=== PATIENT | male | born 1940 | race Caucasian/White ===

== ENCOUNTER → 2018-06-26 10:55 | Outpatient (CLI) | payer MEDICARE, SELFPAY ==
[2018-06-26 12:25] LABS: Add Manual Diff / Slide Review NO; Basophils Percent Auto 0.6 % (0-2); Eosinophils Percent Auto 3.1 % (2-4); Hematocrit 41.9 % (41-53); Hemoglobin 14.5 g/dL (13.5-17.5); Lymphocytes Percent Auto 20.9 % (25-40); Mean Corpuscular HGB Conc 34.6 % (30-36); Mean Corpuscular Hemoglobin 30.3 PG (26-34); Mean Corpuscular Volume 87.6 fL (80-100); Monocytes Percent Auto 11.2 % (3-14); Neutrophils Absolute Auto 3900 /uL (3000-5900); Neutrophils Percent Auto 64.2 % (50-75); Platelet Count 217 X10^3/uL (150-400); Red Blood Cell Count 4.79 X10^6/uL (4.5-5.9); Red Cell Distribution Width 12.9 % (11.6-14.8)
[2018-06-26 12:43] LABS: HEMOLYSIS < 15 (0-50); Iron 134 ug/dL (49-181)
[2018-06-26 12:46] LABS: Alanine Aminotransferase 37 IU/L (21-72); Albumin 4.6 g/dL (3.5-5.0); Albumin Globulin Ratio 1.5 (1.0-2.8); Alkaline Phosphatase 63 U/L (38-126); Aspartate Aminotransferase 34 IU/L (17-59); Bilirubin Total 0.5 mg/dL (0.2-1.3); Blood Urea Nitrogen 33 mg/dL (9-20); Calcium 9.3 mg/dL (8.4-10.2); Carbon Dioxide 25 mmol/L (22-32); Chloride 103 mmol/L (98-107); Estimated Glomerular Filt Rate 45.4 mL/min (>60); Glucose 64 mg/dL (80-110); HEMOLYSIS 18 (0-50); Potassium 3.8 mmol/L (3.4-5.1); Sodium 143 mmol/L (137-145); Total Protein 7.6 g/dL (6.3-8.2)
[2018-06-26 12:54] LABS: Percent Iron Saturation 39 % (20-50); Total Iron Binding Capacity 347 ug/dL (261-462); Transferrin 289 mg/dL (206-381)
[2018-06-26 13:03] LABS: Free T4, Direct Thyroxine 1.22 ng/dL (0.78-2.19)
[2018-06-26 13:16] LABS: Thyroid Stimulating Hormone 2.08 uIU/mL (0.47-4.68)
[2018-06-26 17:09] LABS: Hepatitis B Surface Antigen NEGATIVE s/c (NEGATIVE)
[2018-06-26 17:18] LABS: Hep C Virus Ab w/Reflex Quant NEGATIVE s/c (NEGATIVE)
[2018-06-30 07:58] LABS: ANA Screen NEGATIVE (Negative); DNA Antibody Crithidia IFA NEGATIVE (Negative); Rheumatoid Factor <14 IU/mL; Sjogren Antiboday SS-A <1.0 NEG AI (<1.0 NEGATIVE); Sjogren Antiboday SS-B <1.0 NEG AI (<1.0 NEGATIVE); Sm Antibody <1.0 NEG AI (<1.0 NEGATIVE); Sm/RNP Antibody <1.0 NEG AI (<1.0 NEGATIVE)
== END ==
PROVIDERS: Family Provider Family Medicine; PCP Family Medicine; Visit Provider Physician Assistant
DX: L29.8 Other pruritus (principal)
CPT/HCPCS: 36415; 80053; 82728; 82785; 83540; 83550; 84439; 84443; 85025; 86003; 86038; 86430; 86803; 87340

== ENCOUNTER → 2018-06-27 10:21 | Outpatient (CLI) | payer MEDICARE, SELFPAY | PROVIDERS: Family Provider Family Medicine; PCP Family Medicine; Visit Provider Physician Assistant | DX: L29.8 Other pruritus (principal) | CPT/HCPCS: 87177 ==

== ENCOUNTER → 2019-09-04 06:36 | Outpatient (CLI) | payer MEDICARE, SELFPAY ==
--- NOTE | 2019-09-04 06:40 | DI.RAD.S_ITS ---
PROCEDURE: XR SHOULDER LT MIN 2V INDICATIONS: Pain, history of left shoulder surgery TECHNIQUE: 3 views of the shoulder were acquired. COMPARISON: None. FINDINGS: Bones: No fractures or dislocations. No suspicious bony lesions. Visualized ribs appear intact. Soft tissues: No suspicious soft tissue calcifications. IMPRESSION: Mild arthritic change at the a.c. joint. No recent trauma suspected. Dictated by: Jerel Ramirez M.D. on 09/04/2019 at 8:26 Approved by: Jerel Ramirez M.D. on 09/04/2019 at 8:27
== END ==
PROVIDERS: Family Provider Family Medicine; PCP Family Medicine; Referring Provider Physical Medicine & Rehabilitation; Visit Provider Physical Medicine & Rehabilitation
DX: M75.42 Impingement syndrome of left shoulder (principal); M19.012 Primary osteoarthritis, left shoulder; M25.512 Pain in left shoulder
CPT/HCPCS: 73030

== ENCOUNTER → 2020-06-02 13:06 | Outpatient (CLI) | payer MEDICARE, SELFPAY | PROVIDERS: Family Provider Family Medicine; PCP Family Medicine; Referring Provider Orthopaedic Surgery; Visit Provider Family Medicine | DX: S61.212A Laceration without foreign body of right middle finger without damage to nail, initial encounter (principal); L03.113 Cellulitis of right upper limb; L08.9 Local infection of the skin and subcutaneous tissue, unspecified | CPT/HCPCS: 11042; 36415; 73140; 80053; 85025; 85651; 86140; 87070; 87075; 87077; 87186; 87205; 99203; 99213 ==

== ENCOUNTER → 2020-06-02 14:44 | Outpatient (CLI) | payer MEDICARE, SELFPAY ==
--- NOTE | 2020-06-02 | DI.RAD.S_ITS ---
PROCEDURE: XR FINGER RT MIN 2V INDICATIONS: Unspecified open wound of right middle finger without damage TECHNIQUE: AP hand, 2 views of the 3rd finger(s) acquired. COMPARISON: None. FINDINGS: Bones: No fractures or dislocations. No suspicious bony lesions. 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 Soft tissues: Soft tissue swelling about the 3rd digit and distal laceration. No suspicious soft tissue calcifications. Question of punctate metallic foreign body at the 2nd digit radial aspect adjacent to the DIP joint. IMPRESSION: No acute osseous abnormality. 3rd digit laceration with soft tissue swelling. Moderate interphalangeal joint degenerative change. Question of metallic foreign body at the 2nd digit radial aspect adjacent to the DIP joint. Dictated by: Perico Hunt M.D. on 06/02/2020 at 16:24 Approved by: Perico Hunt M.D. on 06/02/2020 at 16:27
[2020-06-02 16:18] LABS: Add Manual Diff / Slide Review NO; Basophils Absolute Auto 0 /uL (0-100); Basophils Percent Auto 0.5 % (0-2); Eosinophils Absolute Auto 100 /uL (0-450); Eosinophils Percent Auto 1.7 % (2-4); Hematocrit 38.8 % (41-53); Hemoglobin 12.9 g/dL (13.5-17.5); Lymphocytes Absolute Auto 1300 /uL (1100-4500); Mean Corpuscular HGB Conc 33.4 % (30-36); Mean Corpuscular Hemoglobin 29.7 PG (26-34); Mean Corpuscular Volume 89.1 fL (80-100); Monocytes Absolute Auto 700 /uL (0-900); Neutrophils Absolute Auto 3900 /uL (1500-7000); Neutrophils Percent Auto 65.8 % (50-75); Platelet Count 255 X10^3/uL (150-400); Red Blood Cell Count 4.35 X10^6/uL (4.5-5.9); Red Cell Distribution Width 13.4 % (11.6-14.8)
[2020-06-02 16:46] LABS: Erythrocyte Sedimentation Rate 29 MM/HR (0-15)
[2020-06-02 17:02] LABS: Alanine Aminotransferase 17 IU/L (<50); Albumin 4.4 g/dL (3.5-5.0); Albumin Globulin Ratio 1.4 (1.0-2.8); Alkaline Phosphatase 69 U/L (38-126); Aspartate Aminotransferase 25 IU/L (17-59); BUN Creatinine Ratio 24.6 (6-22); Bilirubin Total 0.4 mg/dL (0.2-1.3); Blood Urea Nitrogen 30 mg/dL (9-20); Calcium 9.2 mg/dL (8.4-10.2); Carbon Dioxide 23 mmol/L (22-32); Chloride 108 mmol/L (98-107); Estimated Glomerular Filt Rate 57.3 mL/min (>60); Globulin 3.1 g/dL (1.7-4.1); Glucose 75 mg/dL (80-110); HEMOLYSIS < 15 (0-50); Potassium 4.4 mmol/L (3.4-5.1); Sodium 139 mmol/L (137-145); Total Protein 7.5 g/dL (6.3-8.2)
[2020-06-02 17:04] LABS: C-Reactive Protein Quant < 0.5 mg/dL (<1.0)
== END ==
PROVIDERS: Family Provider Family Medicine; PCP Family Medicine; Referring Provider Family Medicine; Visit Provider Family Medicine
DX: S61.212A Laceration without foreign body of right middle finger without damage to nail, initial encounter (principal); L03.113 Cellulitis of right upper limb; L08.9 Local infection of the skin and subcutaneous tissue, unspecified
CPT/HCPCS: 36415; 73140; 80053; 85025; 85651; 86140

== ENCOUNTER → 2020-06-09 10:09 | Outpatient (CLI) | payer MEDICARE, SELFPAY | PROVIDERS: Family Provider Family Medicine; PCP Family Medicine; Referring Provider Family Medicine; Visit Provider Family Medicine | DX: S61.202A Unspecified open wound of right middle finger without damage to nail, initial encounter (principal) | CPT/HCPCS: 99213 ==

== ENCOUNTER → 2020-06-17 10:23 | Outpatient (CLI) | payer MEDICARE, SELFPAY | PROVIDERS: Family Provider Family Medicine; PCP Family Medicine; Referring Provider Family Medicine; Visit Provider Family Medicine | DX: S61.202A Unspecified open wound of right middle finger without damage to nail, initial encounter (principal); R60.0 Localized edema | CPT/HCPCS: 99213 ==

== ENCOUNTER → 2020-06-24 11:55 | Outpatient (CLI) | payer MEDICARE, SELFPAY | PROVIDERS: Family Provider Family Medicine; PCP Family Medicine; Referring Provider Family Medicine; Visit Provider Family Medicine | DX: S61.202D Unspecified open wound of right middle finger without damage to nail, subsequent encounter (principal); L50.0 Allergic urticaria; Z88.1 Allergy status to other antibiotic agents; Z88.0 Allergy status to penicillin | CPT/HCPCS: 99212; 99213 ==

== ENCOUNTER → 2020-08-09 08:07 | Outpatient (CLI) | payer MEDICARE, OTHER, SELFPAY ==
[2020-08-09 08:40] LABS: Add Manual Diff / Slide Review NO; Basophils Absolute Auto 0 /uL (0-100); Basophils Percent Auto 0.6 % (0-2); Eosinophils Absolute Auto 100 /uL (0-450); Eosinophils Percent Auto 2.1 % (2-4); Hematocrit 42.9 % (41-53); Hemoglobin 14.1 g/dL (13.5-17.5); Lymphocytes Absolute Auto 1200 /uL (1100-4500); Mean Corpuscular HGB Conc 32.8 % (30-36); Mean Corpuscular Hemoglobin 29.7 PG (26-34); Mean Corpuscular Volume 90.5 fL (80-100); Monocytes Absolute Auto 500 /uL (0-900); Monocytes Percent Auto 9.4 % (3-14); Neutrophils Absolute Auto 3800 /uL (1500-7000); Neutrophils Percent Auto 66.9 % (50-75); Platelet Count 213 X10^3/uL (150-400); Red Blood Cell Count 4.74 X10^6/uL (4.5-5.9); Red Cell Distribution Width 13.6 % (11.6-14.8); White Blood Cell Count 5.6 X10^3/uL (4.5-11.0)
[2020-08-09 09:14] LABS: Alanine Aminotransferase 19 IU/L (<50); Albumin 4.3 g/dL (3.5-5.0); Albumin Globulin Ratio 1.6 (1.0-2.8); Alkaline Phosphatase 72 U/L (38-126); Aspartate Aminotransferase 25 IU/L (17-59); BUN Creatinine Ratio 25.2 (6-22); Bilirubin Total 0.6 mg/dL (0.2-1.3); Blood Urea Nitrogen 36 mg/dL (9-20); Calcium 8.9 mg/dL (8.4-10.2); Carbon Dioxide 24 mmol/L (22-32); Chloride 106 mmol/L (98-107); Cholesterol 148 mg/dL (140-199); Estimated Glomerular Filt Rate 47.7 mL/min (>60); Globulin 2.7 g/dL (1.7-4.1); Glucose 96 mg/dL (80-110); HDL Cholesterol 48 mg/dL (40-60); HEMOLYSIS < 15 (0-50); LDL Cholesterol Calculated 72 mg/dL (<100); Potassium 4.6 mmol/L (3.4-5.1); Sodium 138 mmol/L (137-145); Triglycerides 140 mg/dL (35-150); Uric Acid 7.2 mg/dL (3.5-8.5)
[2020-08-11 16:08] LABS: QuantiFERON Nil Value 0.23 IU/mL (.); QuantiFERON TB Gold Plus Negative (Negative); QuantiFERON TB1 Ag Value 0.17 IU/mL (.); QuantiFERON TB2 Ag Value 0.17 IU/mL (.)
== END ==
PROVIDERS: PCP Family Medicine; Referring Provider Family Medicine; Visit Provider Nurse Practitioner Adult Health
DX: L30.0 Nummular dermatitis (principal); E78.5 Hyperlipidemia, unspecified; Z12.5 Encounter for screening for malignant neoplasm of prostate; I10 Essential (primary) hypertension; K21.9 Gastro-esophageal reflux disease without esophagitis; M10.9 Gout, unspecified
CPT/HCPCS: 36415; 80053; 80061; 84550; 85025; 86480; G0103

== ENCOUNTER → 2020-08-10 14:44 | Outpatient (CLI) | payer MEDICARE, OTHER, SELFPAY ==
[2020-08-10] MEDS: COVID-19 VACC #1, MRNA(MOD) 100 MCG/0.5 ML VIAL IM (14:47)
== END ==
PROVIDERS: PCP Family Medicine; Visit Provider Internal Medicine
DX: Z23 Encounter for immunization (principal)
CPT/HCPCS: 0011A; 91301

== ENCOUNTER → 2020-09-07 14:47 | Outpatient (CLI) | payer MEDICARE, OTHER, SELFPAY ==
[2020-09-07] MEDS: COVID-19 VACC #2, MRNA(MOD) 100 MCG/0.5 ML VIAL IM (14:55)
== END ==
PROVIDERS: PCP Family Medicine; Visit Provider Internal Medicine
DX: Z23 Encounter for immunization (principal)
CPT/HCPCS: 0012A; 91301

== ENCOUNTER → 2020-11-11 11:13 | Outpatient (CLI) | payer MEDICARE, OTHER, SELFPAY ==
--- NOTE | 2020-11-11 11:16 | DI.RAD.S_ITS ---
PROCEDURE: XR LUMBAR SPINE MIN 4V INDICATIONS: Low back pain hip pain TECHNIQUE: 4 views of the lumbar spine were acquired, including bilateral oblique views. COMPARISON: [facility], JEAN-PAUL, L-SPINE 2-3 VIEWS, 08/17/2016, 7:26. [facility], , SPINE LUMB 2 OR 3VW, 12/27/2016, 10:23. FINDINGS: Bones: 5 nonrib-bearing vertebrae are present. There is normal bony alignment. No vertebral body compression fractures. No suspicious bony lesions. There is moderate degenerative disease at L2-L3, L3-L4 and L4-L5. Severe facet arthropathy at L4-L5 and L5-S1. Compared to the last exam on 08/17/2016, there is worsening of disc and facet joint degeneration. Soft tissues: Overlying bowel gas pattern is normal. No suspicious soft tissue calcifications. Oblique images: No pars defects. IMPRESSION: Progressive worsening of degenerative disc and facet disease in lumbar spine. Dictated by: Abigail Venegas M.D. on 11/11/2020 at 18:00 Approved by: Abigail Venegas M.D. on 11/11/2020 at 18:02
== END ==
PROVIDERS: PCP Family Medicine; Referring Provider Physical Medicine & Rehabilitation; Visit Provider Physical Medicine & Rehabilitation
DX: M51.36 Other intervertebral disc degeneration, lumbar region (principal); M54.16 Radiculopathy, lumbar region
CPT/HCPCS: 72110

== ENCOUNTER → 2021-01-14 07:43 | Outpatient (CLI) | payer MEDICARE, OTHER, SELFPAY ==
[2021-01-14 09:09] LABS: Creatinine Urine Random 176.9 mg/dL
[2021-01-14 09:12] LABS: Microalbumi Creatinin Ratio Ur 11.8 ug/mg CR (<30); Microalbumin Urine Random 2.1 mg/dL (0-1.6)
[2021-01-14 09:45] LABS: BUN Creatinine Ratio 22.4 (6-22); Blood Urea Nitrogen 34 mg/dL (9-20); Calcium 8.9 mg/dL (8.4-10.2); Carbon Dioxide 25 mmol/L (22-32); Chloride 106 mmol/L (98-107); Estimated Glomerular Filt Rate 44.5 mL/min (>60); Glucose 67 mg/dL (80-110); HEMOLYSIS < 15 (0-50); Potassium 4.5 mmol/L (3.4-5.1); Sodium 138 mmol/L (137-145)
== END ==
PROVIDERS: PCP Student in an Organized Health Care Education/Training Program; Referring Provider Student in an Organized Health Care Education/Training Program; Visit Provider Student in an Organized Health Care Education/Training Program
DX: I10 Essential (primary) hypertension (principal)
CPT/HCPCS: 36415; 80048; 82043; 82570

== ENCOUNTER → 2021-01-18 08:43 | Outpatient (CLI) | payer MEDICARE, OTHER, SELFPAY ==
[2021-01-19 11:42] LABS: Fecal Immunochemical Test Negative (Negative)
== END ==
PROVIDERS: PCP Student in an Organized Health Care Education/Training Program; Referring Provider Student in an Organized Health Care Education/Training Program; Visit Provider Student in an Organized Health Care Education/Training Program
DX: Z12.11 Encounter for screening for malignant neoplasm of colon (principal)
CPT/HCPCS: 82274

== ENCOUNTER → 2021-01-20 07:56 | Outpatient (CLI) | payer MEDICARE, OTHER, SELFPAY ==
--- NOTE | 2021-01-20 07:58 | DI.MRI.S_ITS ---
PROCEDURE: MR LUMBAR SPINE WO CON INDICATIONS: Post laminectomy syndrome TECHNIQUE: Noncontrast sagittal T1 spin echo and T2 fast echo, sagittal STIR, axial T1 and T2 fast spin echo through the lumbar spine. In cases with scoliosis, additional coronal T2 fast spin echo may be performed. COMPARISON: [facility], , L-SPINE WITHOUT CONTRAST, 01/03/2017, 12:44. FINDINGS: Image quality: Excellent. Alignment and Curvature: Straightening of the normal lordotic curvature. Trace retrolisthesis of L2 on L3. Bone Marrow: No acute fracture. Multilevel degenerative endplate sclerosis and spurring. Diffuse facet arthropathy. Spinal Cord: Conus medullaris terminates at the L1 level. Visualized cord demonstrates normal signal and size. Paraspinous Soft Tissues: No paravertebral masses. Presumed postsurgical changes seen at the level of L4-L5 on the right. T12-L1: Normal appearance. L1-L2: Normal appearance. L2-L3: No canal narrowing. Partial effacement of both lateral recesses with bilaterally symmetric appearance. No right foraminal stenosis. Minimal left foraminal narrowing. No interval change L3-L4: Dorsal epidural lipomatosis and mild central canal narrowing. Partial effacement of both lateral recesses with bilaterally symmetric appearance. Minimal right foraminal narrowing. Mild left foraminal narrowing. Overall, no interval change. L4-L5: Dorsal epidural lipomatosis and moderate canal narrowing. Broad-based posterior disc protrusion demonstrating similar appearance to the prior study. Partial effacement of both lateral recesses with bilaterally symmetric appearance. Severe right foraminal stenosis with nerve root compression. Mild left foraminal narrowing. No interval change. L5-S1: Dorsal epidural lipomatosis and minimal canal narrowing. Lateral recesses appear grossly patent. Mild bilateral foraminal narrowing, unchanged IMPRESSION: Postsurgical changes seen at the level of right L4-L5 laminectomy. Otherwise, similar examination to 01/03/17 as detailed above by spinal level. Dictated by: Alex Nolen M.D. on 01/20/2021 at 9:11 Approved by: Alex Nolen M.D. on 01/20/2021 at 9:22
== END ==
PROVIDERS: PCP Student in an Organized Health Care Education/Training Program; Referring Provider Physical Medicine & Rehabilitation; Visit Provider Physical Medicine & Rehabilitation
DX: M54.16 Radiculopathy, lumbar region (principal); M96.1 Postlaminectomy syndrome, not elsewhere classified
CPT/HCPCS: 72148

== ENCOUNTER → 2021-01-31 06:49 | Outpatient (CLI) | payer MEDICARE, OTHER, SELFPAY ==
[2021-01-31 08:32] LABS: BUN Creatinine Ratio 28.2 (6-22); Blood Urea Nitrogen 40 mg/dL (9-20); Estimated Glomerular Filt Rate 48.1 mL/min (>60)
== END ==
PROVIDERS: PCP Student in an Organized Health Care Education/Training Program; Referring Provider Student in an Organized Health Care Education/Training Program; Visit Provider Student in an Organized Health Care Education/Training Program
DX: N17.9 Acute kidney failure, unspecified (principal)
CPT/HCPCS: 36415; 82565; 84520

== ENCOUNTER → 2021-02-14 10:30 | Outpatient (CLI) | payer MEDICARE, OTHER, SELFPAY ==
[2021-02-14 13:53] LABS: COVID19 -Nasal RAPID Negative (Negative)
== END ==
PROVIDERS: PCP Student in an Organized Health Care Education/Training Program; Visit Provider Physical Medicine & Rehabilitation
DX: Z20.822 Contact with and (suspected) exposure to COVID-19 (principal)
CPT/HCPCS: 87635; C9803

== ENCOUNTER 2021-02-17 08:13 | Outpatient (CLI) | payer MEDICARE, OTHER, SELFPAY ==
[2021-02-17] VITALS (7 sets, daily range): BP systolic 109–162; BP diastolic 52–68; PULSE 62–72; RESP 12–19; TEMP 36.6–36.8; O2SAT 96–100
--- NOTE | 2021-02-17 08:16 | DI.RAD.S_ITS ---
PROCEDURE: PAIN L/S FACET INJ/BLK 1ST JOHANA COMPARISON: [facility], CR, XR LUMBAR SPINE MIN 4V, 11/11/2020, 11:18. [facility], MR, MR LUMBAR SPINE WO CON, 01/20/2021, 8:04. INDICATIONS: SPONDYLOSIS FINDINGS: Fluoroscopic spot filming was performed to verify placement of spinal needles on both sides at the L3-L4 and L4-L5 levels, as labeled on the films. Appropriate location of the needle tips was confirmed by injection of iodinated contrast. IMPRESSION: Intraprocedural examination within normal limits. Dictated by: Sharif Hernandez M.D. on 02/17/2021 at 9:01 Approved by: Sharif Hernandez M.D. on 02/17/2021 at 9:02
[2021-02-17] MEDS: MIDAZOLAM 5 MG/5 ML VIAL IV (09:00)
[2021-02-17] MEDS: fentaNYL 100 MCG/2 ML INJ 50 MCG IV (09:00)
[2021-02-17] MEDS: IOPAMIDOL 15 ML VIAL 3 ML INJ (09:03)
[2021-02-17] MEDS: BUPIVACAINE 0.5% (PF) VIAL 5 ML INJ (09:03)
[2021-02-17] MEDS: LIDOCAINE 1% 20 ML 10 ML INJ (09:03)
[2021-02-17] MEDS: BETAMETHASONE 30 MG/5 ML MDV 12 MG INJ (09:04)
--- NOTE | 2021-02-17 09:15 | P.PCN_ITS ---
Date/Time/Diagnoses Date of procedure: 02/17/21 Time of procedure: 09:15 Pre-procedure diagnosis: 1. FACET ARTHROPATHY 2. AXIAL LBP 3. MULTILEVEL DDD Post-procedure diagnosis: same Procedure Notes Procedure: 1. FLUOROSCOPICALLY GUIDED CONTRAST CONTROLLED FACET JOINT INJECTIONS BILATERAL L4/5, L5/S1 Indications: Miguelito is referred by Dr. Silva for treatment of Axial LBP Physician: Harshal Tubbs Total Fluoroscopy time (seconds): 12 Total sedation minutes: 12 Complications: none Procedure in detail & Post-procedure care: FINDINGS Multilevel Facet Arthropathy with Clinically significant axial LBP DESCRIPTION OF PROCEDURE Fluoroscopically guided, contrast-controlled bilateral L4/5, L5/S1 facet joint injections. Following review of allergy and review of potential side effects and complications, including, but not necessarily limited to, infection, allergic reaction, local tissue breakdown, stroke, temporary or permanent nerve injury, paralysis, and possible , the patient indicated that the patient understood and agreed to proceed. An informed consent document was signed by the patient, witnessed by a nurse, and placed in the patient's chart. Additionally, other treatment options including medications, modalities, and physical therapy were reviewed with the patient. After review of previous anaesthesic history and IV conscious sedation the patient was deemed safe to proceed with today?s procedure with IV conscious sedation as ASA class II designation. Safety time-out was performed to confirm patient ID, procedure to be performed and site of procedure. IV sedation was accomplished with a combination of 2mg of Versed and 50mcg of Fentanyl was administered by the RN after DO order, titrated to patient comfort during the course of the procedure while the patient remained responsive to all verbal commands In the prone position, following sterile prep and drape of the lumbar region, the posterior aspect of the L4/5, L5/S1 facet joints were identified fluoroscopically. The skin was anesthetized via a 25-gauge 1.5inch needle with 1% lidocaine solution into the corresponding facet joints. At this point, a 22- gauge 3.5-inch spinal needle was atraumatically introduced and advanced under fluoroscopic guidance into the corresponding facet joints. Following negative aspiration, injections of approximately 0.2cc of Isovue 200 confirmed interartic ular placement without vascular uptake. The identical procedure was then performed at the L4/5, L5/S1 facet joints on the left. Radiological data, including multiple fluoroscopic views of the lumbosacral spine, reveal a spinal needle at the L4/5, L5/S1 facet joints bilaterally. Subsequent views show flow of contrast material both superiorly and inferiorly within the joint space without vascular or intrathecal uptake. At this point, a total of 0.5cc including a mixture of 0.25cc Marcaine and 0.25cc betamethasone was injected without complication into each of the corresponding facet joints. The patient tolerated the procedure well without signs or symptoms of complications prior to transfer to the recovery area continued monitoring without incident. The patient was then transferred to the recovery area where they were observed for an appropriate period of time after the injection. The patient reported a VAS score of 7 prior to the procedure and a post- procedure VAS of 0. POST OP INSTRUCTIONS The patient was provided a Pain Log to continue to record their response to the target-specific procedure prior to follow-up visit with their referring physician. Additionally, specific post-injection care instructions and a contact number to our office were provided if concerns arise regarding possible complications associated with the procedure are suspected.
== END 2021-02-17 09:32 | disposition home or self-care (01) ==
LOC: RAD 08:15
PROVIDERS: PCP Student in an Organized Health Care Education/Training Program; Referring Provider Physical Medicine & Rehabilitation; Visit Provider Physical Medicine & Rehabilitation
DX: M47.816 Spondylosis without myelopathy or radiculopathy, lumbar region (principal); M47.817 Spondylosis without myelopathy or radiculopathy, lumbosacral region; M51.36 Other intervertebral disc degeneration, lumbar region; M51.37 Other intervertebral disc degeneration, lumbosacral region; M54.5 Low back pain
CPT/HCPCS: 64493; 64494; 99152; J0702; J2250; J3010

== ENCOUNTER → 2021-04-05 09:55 | Outpatient (CLI) | payer MEDICARE, OTHER, SELFPAY | PROVIDERS: PCP Student in an Organized Health Care Education/Training Program; Referring Provider Student in an Organized Health Care Education/Training Program; Visit Provider Student in an Organized Health Care Education/Training Program | DX: M81.0 Age-related osteoporosis without current pathological fracture (principal) | CPT/HCPCS: 77080 ==

== ENCOUNTER → 2021-08-01 08:35 | Outpatient (CLI) | payer MEDICARE, OTHER, SELFPAY ==
[2021-08-01 09:55] LABS: BUN Creatinine Ratio 22.1 (6-22); Blood Urea Nitrogen 34 mg/dL (9-20); Calcium 9.3 mg/dL (8.4-10.2); Carbon Dioxide 23 mmol/L (22-32); Chloride 108 mmol/L (98-107); Estimated Glomerular Filt Rate 43.7 mL/min (>60); Glucose 100 mg/dL (80-110); HEMOLYSIS < 15 (0-50); Potassium 4.7 mmol/L (3.4-5.1); Sodium 140 mmol/L (137-145)
[2021-08-01 09:58] LABS: Creatinine Urine Random 166.6 mg/dL
[2021-08-01 10:13] LABS: Microalbumi Creatinin Ratio Ur 36.6 ug/mg CR (<30); Microalbumin Urine Random 6.1 mg/dL (0-1.6)
== END ==
PROVIDERS: PCP Student in an Organized Health Care Education/Training Program; Referring Provider Student in an Organized Health Care Education/Training Program; Visit Provider Student in an Organized Health Care Education/Training Program
DX: N17.9 Acute kidney failure, unspecified (principal)
CPT/HCPCS: 36415; 80048; 82043; 82570

== ENCOUNTER → 2021-10-12 06:51 | Outpatient (CLI) | payer MEDICARE, OTHER, SELFPAY ==
[2021-10-12 07:38] LABS: Appearance Urine UA CLEAR; Bilirubin Urine UA NEGATIVE (NEGATIVE); Color Urine UA YELLOW; Glucose Urine UA NEGATIVE (Negative); Ketones Urine UA NEGATIVE (NEGATIVE); Leukocyte Esterase Urine UA NEGATIVE (NEGATIVE); Nitrite Urine UA NEGATIVE (Negative); Occult Blood Urine UA NEGATIVE (Negative); Protein Urine UA NEGATIVE (Negative); Specific Gravity Urine UA <=1.005 (1.000-1.035); Urobilinogen Urine UA 0.2 E.U./dL (0.2)
[2021-10-12 07:45] LABS: Bacteria Urine None Seen; Culture Indicated Urine Cult Not Indicated; RBC Urine None Seen (0-5/HPF); Urine Comments Microscopic Normal; WBC Urine None Seen (0-5/HPF)
[2021-10-12 07:46] LABS: Creatinine Urine Random 79.8 mg/dL; Hematocrit 40.3 % (41-53); Hemoglobin 13.5 g/dL (13.5-17.5); Protein (Total) Urine Random 10 mg/dL (0-12); Protein Creatinine Ratio Urine 0.12 GRAM/24H
[2021-10-12 07:48] LABS: BUN Creatinine Ratio 18.6 (6-22); Blood Urea Nitrogen 26 mg/dL (9-20); Calcium 9.2 mg/dL (8.4-10.2); Carbon Dioxide 26 mmol/L (22-32); Chloride 105 mmol/L (98-107); Estimated Glomerular Filt Rate 48.8 mL/min (>60); Glucose 110 mg/dL (80-110); HEMOLYSIS < 15 (0-50); Phosphorous 3.1 mg/dL (2.3-3.7); Potassium 4.2 mmol/L (3.4-5.1); Sodium 139 mmol/L (137-145)
[2021-10-13 07:19] LABS: Parathyroid Hormone Int 54 pg/mL (15-65)
== END ==
PROVIDERS: PCP Student in an Organized Health Care Education/Training Program; Referring Provider Student in an Organized Health Care Education/Training Program; Visit Provider Student in an Organized Health Care Education/Training Program
DX: N05.9 Unspecified nephritic syndrome with unspecified morphologic changes (principal); D64.9 Anemia, unspecified; E83.30 Disorder of phosphorus metabolism, unspecified; N25.81 Secondary hyperparathyroidism of renal origin; N30.00 Acute cystitis without hematuria; R80.9 Proteinuria, unspecified
CPT/HCPCS: 36415; 80048; 81001; 82570; 83970; 84100; 84156; 85014; 85018

== ENCOUNTER → 2021-10-24 10:38 | Outpatient (CLI) | payer MEDICARE, OTHER, SELFPAY ==
[2021-10-24 13:20] LABS: COVID19 -Nasal RAPID Negative (Negative)
== END ==
PROVIDERS: PCP Student in an Organized Health Care Education/Training Program; Referring Provider Physical Medicine & Rehabilitation; Visit Provider Physical Medicine & Rehabilitation
DX: Z01.812 Encounter for preprocedural laboratory examination (principal); Z20.822 Contact with and (suspected) exposure to COVID-19
CPT/HCPCS: 87635; C9803

== ENCOUNTER 2021-10-25 07:55 | Outpatient (CLI) | payer MEDICARE, OTHER, SELFPAY ==
[2021-10-25] VITALS (7 sets, daily range): BP systolic 138–177; BP diastolic 65–89; PULSE 57–66; RESP 12–17; TEMP 36.5; O2SAT 99–100
--- NOTE | 2021-10-25 07:56 | DI.RAD.S_ITS ---
PROCEDURE: PAIN L/S TRANSFORAMINAL INJECT INDICATIONS: SPONDYLOSIS COMPARISON: [facility], MR, MR LUMBAR SPINE WO CON, 01/20/2021, 8:04. [facility], XA, PAIN L/S FACET INJ/BLK 1ST JOHANA, 02/17/2021, 9:04. FINDINGS: Fluoroscopic spot filming was performed to verify placement of a spinal needle at the L4-L5 level, as labeled on the films. Appropriate location of the needle tip was confirmed by injection of iodinated contrast. IMPRESSION: Intraprocedural examination within normal limits. Dictated by: Sharif Hernandez M.D. on 10/25/2021 at 8:43 Approved by: Sharif Hernandez M.D. on 10/25/2021 at 8:44
[2021-10-25] MEDS: MIDAZOLAM 5 MG/5 ML VIAL IV (09:10)
[2021-10-25] MEDS: IOPAMIDOL 15 ML VIAL 3 ML INJ (09:14)
[2021-10-25] MEDS: BETAMETHASONE 30 MG/5 ML MDV 6 MG INJ (09:15)
[2021-10-25] MEDS: BUPIVACAINE 0.25% (PF) VIAL 2 ML INJ (09:15)
[2021-10-25] MEDS: DEXAMETHASONE 10 MG/ML VIAL 20 MG INJ (09:16)
--- NOTE | 2021-10-25 09:24 | P.PCN_ITS ---
Date/Time/Diagnoses Date of procedure: 10/25/21 Time of procedure: 09:24 Pre-procedure diagnosis: 1. FORAMINAL STENOSIS WITH LE SYMPTOMS Post-procedure diagnosis: same Procedure Notes Procedure: 1. FLUOROSCOPICALLY GUIDED CONTRAST CONTROLLED TRANSFORAMINAL EPIDURAL STEROID INJECTION - RIGHT L4/5 TFESI Indications: Miguelito is referred by Dr. Silva for treatment of Foraminal Stenosis with Right LE Symptoms Physician: Harshal Tubbs Total Fluoroscopy time (seconds): 9 Total sedation minutes: 10 Complications: none Procedure in detail & Post-procedure care: FINDINGS Foraminal Nerve Root Compression secondary to disc disease and facet hypertrophy DESCRIPTION OF PROCEDURE Following review of allergy and review of potential side effects and complications, including, but not necessarily limited to, infection, allergic reaction, local tissue breakdown, stroke, temporary or permanent nerve injury, paralysis, and possible , the patient indicated that the patient understood and agreed to proceed. An informed consent document was signed by the patient, witnessed by a nurse, and placed in the patient's chart. Additionally, other treatment options including medications, modalities, and physical therapy were reviewed with the patient. After review of previous anaesthesic history and IV conscious sedation the patient was deemed safe to proceed with today?s procedure with IV conscious sedation as ASA class II designation. Safety time-out was performed to confirm patient ID, procedure to be performed and site of procedure. IV sedation was accomplished with a combination of 2mg of Versed was administered by the RN after DO order, titrated to patient comfort during the course of the procedure while the patient remained responsive to all verbal commands In the prone position following sterile prep and drape of the lumbar region, the right L4/5 posterior neuroforamen was identified fluoroscopically. The skin was anesthetized via a 25-gauge 1.5-inch needle with 1% lidocaine solution. At this point, a 25-gauge 3.5-inch spinal needle was atraumatically introduced and advanced under fluoroscopic guidance through the posterior right L4/5 neuroforamen to approximately the anterior aspect of the canal. Depth was confirmed on lateral view. Following negative aspiration, injection of approximately 1.5cc of Isovue 200 under live fluoroscopy in the AP view confi rmed excellent flow along the nerve root, into the epidural space without vascular or intrathecal uptake observed Radiological data, including multiple fluoroscopic views of the lumbosacral spine, reveal a spinal needle at the right L4/5 posterior neuroforamen. Subsequent views show flow of contrast material flowing superiorly and inferiorly along the nerve root confirming epidural flow. Subsequently, a test dose of 1.5 cc of 1% lidocaine solution was administered and patient was observed for two minutes for signs or symptoms of complications, including abdominal pain, shortness of breath, bilateral upper or lower extremity weakness, nausea and vomiting, prior to steroid injection. At this point, a total of 3cc or 20mg of dexamethasone and 6mg of betamethasone was injected without incident. The procedure tolerated the procedure well without signs or symptoms of complications prior to transfer to the recovery area continued monitoring without incident. The patient was then transferred to the recovery area where they were observed for an appropriate time after the injection. The patient reported a VAS score of 7 prior to the procedure and a post- procedure VAS of 0. POST OP INSTRUCTIONS The patient was provided a Pain Log to continue to record their response to the target-specific procedure prior to follow-up visit with their referring phy sician. Additionally, specific post-injection care instructions and a contact number to our office were provided if concerns arise regarding possible complications associated with the procedure are suspected.
== END 2021-10-25 09:48 | disposition home or self-care (01) ==
PROVIDERS: PCP Student in an Organized Health Care Education/Training Program; Referring Provider Physical Medicine & Rehabilitation; Visit Provider Physical Medicine & Rehabilitation
DX: M48.061 Spinal stenosis, lumbar region without neurogenic claudication (principal); M51.16 Intervertebral disc disorders with radiculopathy, lumbar region
CPT/HCPCS: 64483; 99152; J0702; J1100; J2250

== ENCOUNTER → 2021-12-15 13:28 | Outpatient (CLI) | payer MEDICARE, OTHER, SELFPAY ==
--- NOTE | 2021-12-15 | DI.MRI.S_ITS ---
PROCEDURE: MR LUMBAR SPINE WO CON INDICATIONS: Other intervertebral disc displacement, lumbar region TECHNIQUE: Noncontrast sagittal T1 spin echo and T2 fast echo, sagittal STIR, axial T1 and T2 fast spin echo through the lumbar spine. Axial and oblique coronal T1 spin echo and STIR through the sacrum. In cases with scoliosis, additional coronal T2 fast spin echo may be performed. COMPARISON: [facility], MR, MR LUMBAR SPINE WO CON, 01/20/2021, 8:04. FINDINGS: Image quality: Excellent. Alignment and Curvature: There is normal bony alignment. Bone Marrow: Modic type 1 degenerative endplate changes noted at L5-S1 and to a lesser degree at L3-4 Spinal Cord: Conus medullaris terminates at the L1 level. Visualized cord demonstrates normal signal and size. Paraspinous Soft Tissues: No paravertebral masses. T12-L1: Normal appearance. L1-L2: Normal appearance. L2-L3: Disc space narrowing present. Circumferential disc bulge and hypertrophic facet joints results in mild central stenosis. No foraminal stenosis. L3-L4: Disc space narrowing with circumferential disc bulge and hypertrophic facet joints present. Moderate central stenosis present. Mild bilateral foraminal stenosis. L4-L5: Disc space narrowing and circumferential disc bulge present. Hypertrophic facet joints noted. Moderate central stenosis. Severe right and mild left foraminal stenosis. L5-S1: Disc space narrowing with circumferential disc bulge and hypertrophic facet joints present. No central stenosis. Moderate right and left foraminal stenosis IMPRESSION: 1. Multilevel degenerative disc disease and arthropathy results in varying degrees of central and foraminal stenosis including moderate central stenosis at L3-4 and L4-5 Approved by: Ash Schaefer M.D. on 12/15/2021 at 15:16
== END ==
PROVIDERS: PCP Student in an Organized Health Care Education/Training Program; Referring Provider Neurological Surgery; Visit Provider Neurological Surgery
DX: M51.26 Other intervertebral disc displacement, lumbar region (principal); M51.36 Other intervertebral disc degeneration, lumbar region; M51.37 Other intervertebral disc degeneration, lumbosacral region; M47.816 Spondylosis without myelopathy or radiculopathy, lumbar region; M47.817 Spondylosis without myelopathy or radiculopathy, lumbosacral region; M48.061 Spinal stenosis, lumbar region without neurogenic claudication; M48.07 Spinal stenosis, lumbosacral region
CPT/HCPCS: 72148

== ENCOUNTER → 2021-12-16 07:31 | Outpatient (CLI) | payer MEDICARE, OTHER, SELFPAY ==
--- NOTE | 2021-12-16 | DI.MRI.S_ITS ---
PROCEDURE: MR LUMBAR SPINE W CON INDICATIONS: INTERVERTEBRAL DISC DISPLACEMENT, LUMBAR REGION TECHNIQUE: Noncontrast images were performed on the prior day and not repeated. After the administration of contrast, sagittal and axial T1 spin echo with fat saturation through the lumbar spine. COMPARISON: [facility], CR, XR LUMBAR SPINE MIN 4V, 11/11/2020, 11:18. [facility], MR, MR LUMBAR SPINE WO CON, 01/20/2021, 8:04. [facility], MR, MR LUMBAR SPINE WO CON, 12/15/2021, 13:41. FINDINGS: Image quality: Excellent. Alignment and curvature: There is normal bony alignment. Marrow: Marrow is of normal overall signal. No acute vertebral body compression fractures. There is a mild degree of enhancement seen involving the endplates at L5 and S1 on the right, which is attributed to degenerative change with reactive enhancement. No suspicious marrow enhancement. Spinal cord: Conus medullaris terminates at the L1 level. Visualized spinal cord demonstrates normal signal, without suspicious enhancement. Paraspinous soft tissues: No paravertebral masses or abnormal enhancement. At the L4-L5 level, there is a mild central/right disc extrusion, as seen on series 2, images 8 and 9. This extruded disc material does not enhance. IMPRESSION: No suspicious enhancement can be seen. At the L4-L5 level, the extruded disc material does not enhance. Dictated by: Sharif Hernandez M.D. on 12/16/2021 at 12:28 Approved by: Sharif Hernandez M.D. on 12/16/2021 at 12:31
== END ==
PROVIDERS: PCP Student in an Organized Health Care Education/Training Program; Referring Provider Neurological Surgery; Visit Provider Neurological Surgery
DX: M51.26 Other intervertebral disc displacement, lumbar region (principal)
CPT/HCPCS: 72149

== ENCOUNTER → 2022-02-20 06:50 | Outpatient (CLI) | payer MEDICARE, OTHER, SELFPAY ==
[2022-02-20 07:42] LABS: Hematocrit 41.2 % (41-53); Hemoglobin 14.1 g/dL (13.5-17.5)
[2022-02-20 07:51] LABS: BUN Creatinine Ratio 20.7 (6-22); Blood Urea Nitrogen 28 mg/dL (9-20); Calcium 8.8 mg/dL (8.4-10.2); Carbon Dioxide 24 mmol/L (22-32); Chloride 105 mmol/L (98-107); Estimated Glomerular Filt Rate 53 mL/min (>60); Glucose 106 mg/dL (80-110); HEMOLYSIS < 15 (0-50); Potassium 4.4 mmol/L (3.4-5.1); Sodium 137 mmol/L (137-145)
[2022-02-20 09:09] LABS: Creatinine Urine Random 61.5 mg/dL; Protein (Total) Urine Random 9 mg/dL (0-12); Protein Creatinine Ratio Urine 0.14 GRAM/24H
[2022-02-21 06:29] LABS: Parathyroid Hormone Int 63 pg/mL (15-65)
== END ==
PROVIDERS: PCP Student in an Organized Health Care Education/Training Program; Referring Provider Student in an Organized Health Care Education/Training Program; Visit Provider Student in an Organized Health Care Education/Training Program
DX: N05.9 Unspecified nephritic syndrome with unspecified morphologic changes (principal); D64.9 Anemia, unspecified; N25.81 Secondary hyperparathyroidism of renal origin; R80.9 Proteinuria, unspecified
CPT/HCPCS: 36415; 80048; 82570; 83970; 84156; 85014; 85018

== ENCOUNTER → 2022-09-14 06:57 | Outpatient (CLI) | payer MEDICARE, OTHER, SELFPAY ==
[2022-09-14 08:28] LABS: Add Manual Diff / Slide Review NO; Basophils Absolute Auto 0 /uL (0-100); Basophils Percent Auto 0.7 % (0-2); Eosinophils Absolute Auto 100 /uL (0-450); Eosinophils Percent Auto 2.6 % (2-4); Lymphocytes Absolute Auto 1100 /uL (1100-4500); Lymphocytes Percent Auto 19.5 % (25-40); Mean Corpuscular HGB Conc 34.1 % (30-36); Mean Corpuscular Hemoglobin 30.5 PG (26-34); Mean Corpuscular Volume 89.5 fL (80-100); Monocytes Absolute Auto 600 /uL (0-900); Monocytes Percent Auto 11.2 % (3-14); Neutrophils Absolute Auto 3700 /uL (1500-7000); Platelet Count 194 X10^3/uL (150-400); Red Blood Cell Count 4.58 X10^6/uL (4.5-5.9); Red Cell Distribution Width 13.3 % (11.6-14.8); White Blood Cell Count 5.6 X10^3/uL (4.5-11.0)
[2022-09-14 08:56] LABS: Cholesterol 139 mg/dL (140-199); HDL Cholesterol 46 mg/dL (40-60); LDL Cholesterol Calculated 69 mg/dL (<100); Triglycerides 118 mg/dL (35-150)
[2022-09-14 08:58] LABS: BUN Creatinine Ratio 19.4 (6-22); Blood Urea Nitrogen 26 mg/dL (9-20); Calcium 8.8 mg/dL (8.4-10.2); Carbon Dioxide 27 mmol/L (22-32); Chloride 104 mmol/L (98-107); Estimated Glomerular Filt Rate 53 mL/min (>60); Glucose 88 mg/dL (80-110); HEMOLYSIS < 15 (0-50); Potassium 4.6 mmol/L (3.4-5.1); Sodium 139 mmol/L (137-145)
[2022-09-14 09:01] LABS: Creatinine Urine Random 92.5 mg/dL; Protein (Total) Urine Random 7 mg/dL (0-12); Protein Creatinine Ratio Urine 0.07 GRAM/24H
[2022-09-14 09:04] LABS: Creatinine Urine Random 91.9 mg/dL
[2022-09-14 09:08] LABS: Microalbumi Creatinin Ratio Ur 39.1 ug/mg CR (<30); Microalbumin Urine Random 3.6 mg/dL (0-1.6)
[2022-09-14 09:22] LABS: TSH w/ Reflex to FT4 2.46 uIU/mL (0.47-4.68)
[2022-09-16 10:22] LABS: Parathyroid Hormone Int 45 pg/mL (15-65)
== END ==
PROVIDERS: PCP Family Medicine; Referring Provider Student in an Organized Health Care Education/Training Program; Visit Provider Student in an Organized Health Care Education/Training Program
DX: N05.9 Unspecified nephritic syndrome with unspecified morphologic changes (principal); N25.81 Secondary hyperparathyroidism of renal origin; D64.9 Anemia, unspecified; R80.9 Proteinuria, unspecified; E78.2 Mixed hyperlipidemia; I10 Essential (primary) hypertension; M51.26 Other intervertebral disc displacement, lumbar region; N18.32 Chronic kidney disease, stage 3b
CPT/HCPCS: 36415; 80048; 80061; 82043; 82570; 83970; 84156; 84443; 85025

== ENCOUNTER → 2022-11-22 06:28 | Outpatient (CLI) | payer MEDICARE, OTHER, SELFPAY ==
--- NOTE | 2022-11-22 06:31 | DI.RAD.S_ITS ---
PROCEDURE: XR CHEST 2V INDICATIONS: unexplained weight loss TECHNIQUE: 2 views of the chest were acquired. COMPARISON: [facility], CHEST 2 VIEW, 04/28/2016, 7:50. [facility], CHEST 2 VIEW, 11/17/2010, 9:58. FINDINGS: Surgical changes and devices: None. Lungs and pleura: Lungs are clear. No pleural effusions or pneumothorax. Prominent right nipple shadow Mediastinum: Mediastinal contours are normal. Heart size is normal. Bones and chest wall: No suspicious bony abnormalities. Soft tissues appear unremarkable. IMPRESSION: No acute cardiopulmonary process. Dictated by: Jose Alejandro Mendez M.D. on 11/22/2022 at 12:22 Approved by: Jose Alejandro Mendez M.D. on 11/22/2022 at 12:23
[2022-11-22 07:49] LABS: Appearance Urine UA CLEAR; Bilirubin Urine UA NEGATIVE (NEGATIVE); Color Urine UA YELLOW; Glucose Urine UA NEGATIVE (Negative); Ketones Urine UA NEGATIVE (NEGATIVE); Leukocyte Esterase Urine UA NEGATIVE (NEGATIVE); Nitrite Urine UA NEGATIVE (Negative); Occult Blood Urine UA NEGATIVE (Negative); Protein Urine UA NEGATIVE (Negative); Specific Gravity Urine UA 1.015 (1.000-1.035); Urobilinogen Urine UA 0.2 E.U./dL (0.2)
[2022-11-22 07:55] LABS: Bacteria Urine None Seen; Culture Indicated Urine Cult Not Indicated; RBC Urine None Seen (0-5/HPF); Squamous Epithelial Cell Urine None Seen (0-5/HPF); WBC Urine None Seen (0-5/HPF)
[2022-11-22 08:04] LABS: Add Manual Diff / Slide Review NO; Basophils Absolute Auto 0 /uL (0-100); Basophils Percent Auto 0.4 % (0-2); Eosinophils Absolute Auto 300 /uL (0-450); Hematocrit 39.5 % (41-53); Hemoglobin 13.6 g/dL (13.5-17.5); Lymphocytes Absolute Auto 900 /uL (1100-4500); Lymphocytes Percent Auto 16.7 % (25-40); Mean Corpuscular HGB Conc 34.4 % (30-36); Mean Corpuscular Hemoglobin 31.2 PG (26-34); Mean Corpuscular Volume 90.8 fL (80-100); Monocytes Absolute Auto 700 /uL (0-900); Monocytes Percent Auto 11.8 % (3-14); Neutrophils Absolute Auto 3700 /uL (1500-7000); Neutrophils Percent Auto 66.1 % (50-75); Platelet Count 223 X10^3/uL (150-400); Red Blood Cell Count 4.35 X10^6/uL (4.5-5.9); Red Cell Distribution Width 14.3 % (11.6-14.8); White Blood Cell Count 5.5 X10^3/uL (4.5-11.0)
[2022-11-22 08:09] LABS: Alanine Aminotransferase 26 IU/L (<50); Albumin 4.2 g/dL (3.5-5.0); Albumin Globulin Ratio 1.4 (1.0-2.8); Alkaline Phosphatase 59 U/L (38-126); Aspartate Aminotransferase 25 IU/L (17-59); BUN Creatinine Ratio 22.1 (6-22); Bilirubin Total 0.8 mg/dL (0.2-1.3); Blood Urea Nitrogen 33 mg/dL (9-20); Calcium 8.8 mg/dL (8.4-10.2); Carbon Dioxide 26 mmol/L (22-32); Chloride 103 mmol/L (98-107); Estimated Glomerular Filt Rate 47 mL/min (>60); Globulin 2.9 g/dL (1.7-4.1); Glucose 106 mg/dL (80-110); HEMOLYSIS < 15 (0-50); Potassium 4.4 mmol/L (3.4-5.1); Sodium 137 mmol/L (137-145); Total Protein 7.1 g/dL (6.3-8.2)
[2022-11-22 09:21] LABS: Creatinine Urine Random 106.5 mg/dL
[2022-11-22 09:23] LABS: Microalbumi Creatinin Ratio Ur 34.7 ug/mg CR (<30); Microalbumin Urine Random 3.7 mg/dL (0-1.6)
[2022-11-22 09:48] LABS: TSH w/ Reflex to FT4 2.02 uIU/mL (0.47-4.68)
[2022-11-23 18:51] LABS: HIV 1 & 2 Ab/Ag 4th Gen Combo NEGATIVE (NEGATIVE); Hep C Virus Ab w/Reflex Quant NEGATIVE s/c (NEGATIVE)
== END ==
LOC: DI 06:43 → RAD 06:45
PROVIDERS: PCP Family Medicine; Referring Provider Family Medicine; Visit Provider Family Medicine
DX: R63.4 Abnormal weight loss (principal); N18.32 Chronic kidney disease, stage 3b; I12.9 Hypertensive chronic kidney disease with stage 1 through stage 4 chronic kidney disease, or unspecified chronic kidney disease; E78.2 Mixed hyperlipidemia; Z12.5 Encounter for screening for malignant neoplasm of prostate
CPT/HCPCS: 36415; 71046; 80053; 81001; 82043; 82570; 84443; 85025; 86803; 87389; G0103

== ENCOUNTER → 2022-11-23 08:33 | Outpatient (CLI) | payer MEDICARE, OTHER, SELFPAY ==
[2022-11-24 14:38] LABS: Fecal Immunochemical Test Negative (Negative)
== END ==
PROVIDERS: PCP Family Medicine; Referring Provider Family Medicine; Visit Provider Family Medicine
DX: E78.2 Mixed hyperlipidemia (principal); I10 Essential (primary) hypertension; N18.32 Chronic kidney disease, stage 3b; R63.4 Abnormal weight loss
CPT/HCPCS: 82274

== ENCOUNTER → 2022-11-27 07:32 | Outpatient (CLI) | payer MEDICARE, OTHER, SELFPAY ==
--- NOTE | 2022-11-27 07:34 | DI.MRI.S_ITS ---
PROCEDURE: MR HEAD/BRAIN WO/W CON INDICATIONS: weight loss, abnormal gait, memory loss TECHNIQUE: Noncontrast axial T1 spin echo, axial T2 fast spin echo, sagittal and axial FLAIR, coronal T2 fast spin echo, axial gradient echo, axial diffusion and ADC through the brain. After the administration of contrast, axial and coronal and sagittal T1 spin echo with fat saturation through the brain. COMPARISON: [facility], MR, BRAIN W&WO CONTRAST, 11/20/2013, 19:49. FINDINGS: Image quality: Excellent. CSF spaces: Basal cisterns are patent. No extra-axial fluid collections. Ventricles are normal in size and shape. Brain: No midline shift. No intracranial bleeds or masses. No abnormal intracranial enhancement. There is cerebral volume loss for age. There is periventricular white matter chronic small vessel ischemic change. The brainstem appears normal. Diffusion-weighted images demonstrate no acute ischemic insults. No chronic ischemic insults. Normal intravascular flow voids are present. Skull and face: Calvarial marrow is normal in signal. Note is made of bilateral lens replacements. Note is made that both globes appear elongated in the AP dimension, as on series 8, image 8. Sinuses: Mild mucosal thickening can be seen within the ethmoid air cells. Minimal mucosal thickening is seen elsewhere. No abnormal fluid is seen within the mastoid air cells. IMPRESSION: No masses or abnormal enhancement can be seen. Abnormal globes, which are elongated in the AP dimension. Dictated by: Sharif Hernandez M.D. on 11/27/2022 at 9:35 Approved by: Sharif Hernandez M.D. on 11/27/2022 at 9:42
== END ==
PROVIDERS: PCP Family Medicine; Referring Provider Family Medicine; Visit Provider Family Medicine
DX: R41.3 Other amnesia (principal); R63.4 Abnormal weight loss; R26.9 Unspecified abnormalities of gait and mobility
CPT/HCPCS: 70553

== ENCOUNTER 2022-12-31 09:14 | Emergency (ER) | payer MEDICARE, OTHER, SELFPAY ==
[2022-12-31] VITALS (17 sets, daily range): BP systolic 116–149; BP diastolic 57–67; PULSE 59–75; RESP 16–25; TEMP 36.7–36.8; O2SAT 94–99; BMI 25.2
--- NOTE | 2022-12-31 09:25 | DI.RAD.S_ITS ---
PROCEDURE: XR CHEST 1V INDICATIONS: chest pain TECHNIQUE: One view of the chest was acquired. COMPARISON: [facility], CR, XR CHEST 2V, 11/22/2022, 6:44. FINDINGS: Surgical changes and devices: None. Lungs and pleura: Lungs are clear. No pleural effusions or pneumothorax. Mediastinum: Mediastinal contours appear normal. Heart size is normal. Bones and chest wall: No suspicious bony lesions. Overlying soft tissues appear unremarkable. IMPRESSION: No acute cardiopulmonary findings Approved by: Ash Schaefer M.D. on 12/31/2022 at 9:29
--- NOTE | 2022-12-31 09:35 | ED.SYNCOPE ---
HPI - Syncope General Chief Complaint: Syncope Stated Complaint: passed out in the car, nausea Time Seen by Provider: 12/31/22 09:35 Source: patient, family, RN notes reviewed and old records reviewed Mode of arrival: Family Vehicle Limitations: no limitations History of Present Illness HPI narrative: This is an 82-year-old male with history of hypertension, chronic kidney disease stage 3, gout, dyslipidemia, hypertension, degenerative disease and atopic dermatitis on prednisone 7.5 mg for the past year. Patient states he syncopal episode today while riding in the car with his son. Patient states he woke up was feeling fine this morning did not have any symptoms or feel unwell. States he ate breakfast he gets up about twice most nights to urinate but no differences or changes. He states about 5 minutes before the episode he was in the vehicle he started feeling hot and sweaty, he lost consciousness in the car sort of lost tone no generalized shaking or seizure-like activity was witnessed. Son was next to him in the car. States it lasted about 1-2 minutes and then he came around and returned to baseline mental status fairly quickly. Patient states he feels slightly nauseated still he had 1 small amount of emesis here in the department. He denies headache, he states he feels tired, denies vision changes, no numbness, tingling or weakness. No chest pain, no chest pressure, no shortness of breath. No abdominal back or flank pain. No new swelling in his extremities. No incontinence, no dysuria urgency or frequency. No diarrhea or constipation. Patient states he is had 1 prior episode in the past while at a family libertarian and was found to be dehydrated. Patient has not tried to ambulate since. He states he takes medication for blood pressure, chronic kidney disease, dermatitis. He denies any prior histories of strokes, heart attacks, no diabetes or dyslipidemia. No known arrhythmias. He denies any prior surgeries. No tobacco, alcohol or illicit. His primary care is Dr. Blue, he follows with Dr. Gomez for Nephrology through [facility] and with Dermatology and he gets light treatment for his atopic dermatitis. Related Data Home Medications Medication Instructions Recorded Confirmed ascorbate calcium (vitamin C) 500 500 mg PO DAILY 07/27/20 11/21/22 mg tablet vit cap PO 07/27/20 11/21/22 C,E,zinc,Ue-lpsgp-2-lutein-zeaxanthin 250 mg-2.5 mg-0.5 mg capsule clobetasol 0.05 % lotion 1 applic topical DAILY 12/22/20 11/21/22 cetirizine 5 mg-pseudoephedrine ER 1 tab PO DAILY 04/15/21 11/21/22 120 mg tablet,extended release,12hr (Zyrtec-D) carvedilol 6.25 mg tablet 6.25 mg PO BID 10/19/21 11/21/22 prednisone 2.5 mg tablet 2.5 mg PO Q OTHER DAY 10/19/21 11/21/22 prednisone 5 mg tablet 5 mg PO Q OTHER DAY 10/19/21 11/21/22 azelastine 137 mcg (0.1 %) nasal ml intranasal 01/25/22 11/21/22 spray aerosol Previous Rx's Medication Instructions Recorded hydrochlorothiazide 25 mg tablet 25 mg PO DAILY PRN Elevated blood 03/03/21 pressure #30 tabs triamcinolone acetonide 0.025 % 1 applic topical .prn #15 grams 01/27/22 topical cream enalapril maleate 2.5 mg tablet 2.5 mg PO DAILY #90 tabs 09/18/22 atorvastatin 10 mg tablet See Rx Instructions .Route 11/16/22 .COMPLEX #90 tabs Allergies Allergy/AdvReac Type Severity Reaction Status Date / Time cefadroxil Allergy Severe hives Verified 11/21/22 11:16 doxycycline Allergy hives Verified 11/21/22 11:16 hydrocodone AdvReac Mild Nausea Verified 11/21/22 11:16 Review of Systems Review of Systems ROS Unobtainable: All systems reviewed & are unremarkable except as noted in HPI and below Patient History Medical History Cataracts, bilateral (~2007) DJD of AC (acromioclavicular) joint Facet arthropathy, lumbar GERD (gastroesophageal reflux disease) Gout Herniated nucleus pulposus, L4-5 Lumbar radiculopathy Rotator cuff impingement syndrome of left shoulder Surgical History Anesthesia H/O knee surgery (~1997) H/O lumbosacral spine surgery (~2016) H/O shoulder surgery (~2003) Family History Father CAD (coronary artery disease) Emphysema/COPD History of heart disease Mother Dementia Sister Cancer Social History (Updated 10/01/19 @ 08:20 by Dalila Bassett RN) Smoking Status: Former smoker Smoking Status: Former smoker Exam Narrative Exam Narrative: GEN: well nourished, well appearing male, alert and oriented x 3, patient appears to be in mild distress. HEENT: Atraumatic, pupils are equal round reactive to light, extraocular movements are intact, nares are clear, there is no conjunctival pallor. Throat is clear without any exudates, erythema, tonsillar enlargement or uvular deviation, no facial droop. HEART: Regular rate and rhythm without murmur, clicks, rubs. Pulses are equal in bilateral lower extremities LUNGS:Lungs clear to auscultation, no wheezes, rales, crackles, chest moves symmetrically ABD:bowel sounds normal, soft, non-tender, no guarding, rebound, rigidity, no masses noted, no hepatosplenomegaly, no pulsatile mass or bruit. :No CVA tenderness MSCL: Non-tender, no muscle atrophy, muscles strength 5/5 upper and lower extremities, full range of motion. NEURO:CN 2-12 intact, sensation normal, finger nose finger test normal, heel zuniga test normal, romberg normal SKIN: No rash, erythema or other skin changes noted Initial Vital Signs Initial Vital Signs: Vital Signs Temperature 98.1 F 12/31/22 09:23 Pulse Rate 65 12/31/22 09:23 Respiratory Rate 16 12/31/22 09:23 Blood Pressure 128/59 L 12/31/22 09:23 Pulse Oximetry 98 12/31/22 09:23 Oxygen Delivery Method Room Air 12/31/22 09:23 Course Orders Ordered: ED Orders 12/31/22 09:25 XR chest 1V Stat EKG-12 Lead Stat 12/31/22 09:45 Complete Blood Count AUTO DIFF Stat Comprehensive Metabolic Panel Stat D Dimer Stat Lactate (Lactic Acid) Stat Lipase Stat Magnesium Stat PTT Partial Thromboplastin Freddy Stat Procalcitonin Stat Prothrombin Time INR Stat Troponin & CK Cardiac Panel Stat 12/31/22 11:50 Trop I [Troponin I] Stat EKG-12 Lead Routine 12/31/22 11:55 Blood Culture Stat 12/31/22 12:00 Respiratory Panel (Film Array) Stat 12/31/22 13:15 Urine Microscopic Stat Discontinued Medications Sodium Chloride (Normal Saline 0.9%) 1,000 mls @ 1,000 mls/hr IV BOLUS ONE Stop: 12/31/22 10:52 Last Infusion: 12/31/22 12:39 Dose: 0 mls/hr Documented By: Admin: 12/31/22 10:05 Dose: 1,000 mls/hr Documented By: HARESH Ondansetron HCl (Ondansetron 4 Mg/2 Ml Inj) 4 mg IV NOW ONE Stop: 12/31/22 09:54 Last Admin: 12/31/22 10:06 Dose: 4 mg Documented By: HARESH Vital Signs Vital signs: Vital Signs - 8 hr 12/31/22 09:23 12/31/22 09:28 12/31/22 09:30 Temperature 98.1 F Pulse Rate 65 60 Respiratory Rate 16 Blood Pressure 128/59 L 125/60 Pulse Oximetry 98 95 Oxygen Delivery Method Room Air 12/31/22 09:30 12/31/22 10:00 12/31/22 10:08 Temperature Pulse Rate 60 59 L 59 L Respiratory Rate 19 16 Blood Pressure Pulse Oximetry 94 98 99 Oxygen Delivery Method 12/31/22 10:08 12/31/22 10:30 12/31/22 10:30 Temperature 98.3 F Pulse Rate 63 Respiratory Rate 21 Blood Pressure 122/59 L 135/63 Pulse Oximetry 98 Oxygen Delivery Method 12/31/22 11:00 12/31/22 11:00 12/31/22 11:30 Temperature Pulse Rate 73 Respiratory Rate 18 Blood Pressure 136/61 131/58 L Pulse Oximetry 98 Oxygen Delivery Method 12/31/22 11:30 12/31/22 12:00 12/31/22 12:00 Temperature Pulse Rate 68 67 Respiratory Rate 25 H Blood Pressure 131/62 Pulse Oximetry 97 Oxygen Delivery Method 12/31/22 12:30 12/31/22 12:30 12/31/22 13:00 Temperature Pulse Rate 68 Respiratory Rate 20 Blood Pressure 128/62 120/57 L Pulse Oximetry 97 Oxygen Delivery Method 12/31/22 13:00 12/31/22 13:09 12/31/22 13:21 Temperature Pulse Rate 66 75 Respiratory Rate 24 Blood Pressure 145/67 H Pulse Oximetry 98 Oxygen Delivery Method 12/31/22 13:30 12/31/22 13:30 12/31/22 14:00 Temperature Pulse Rate 69 66 Respiratory Rate 22 Blood Pressure 116/58 L Pulse Oximetry 95 97 Oxygen Delivery Method 12/31/22 14:01 12/31/22 14:01 12/31/22 14:32 Temperature 98.1 F Pulse Rate 68 Respiratory Rate 24 Blood Pressure 149/65 H Pulse Oximetry 98 Oxygen Delivery Method Room Air MDM - Syncope Lab Data 12/31/22 09:45 12/31/22 09:45 Labs: Lab Results 12/31/22 12/31/22 12/31/22 Range/Units 09:45 09:45 09:45 WBC 7.6 (4.5-11.0) X10^3/uL RBC 4.35 L (4.5-5.9) X10^6/uL Hgb 13.5 (13.5-17.5) g/dL Hct 39.3 L (41-53) % MCV 90.3 (80-100) fL MCH 31.0 (26-34) PG MCHC 34.4 (30-36) % RDW 13.6 (11.6-14.8) % Plt Count 225 (150-400) X10^3/uL Neut % (Auto) 81.0 H (50-75) % Lymph % (Auto) 5.7 L (25-40) % Nance % (Auto) 11.7 (3-14) % Eos % (Auto) 1.3 L (2-4) % Baso % (Auto) 0.3 (0-2) % Neut # (Auto) 6200 (6961-9154) /uL Lymph # (Auto) 400 L (5269-7284) /uL Nance # (Auto) 900 (0-900) /uL Eos # (Auto) 100 (0-450) /uL Baso # (Auto) 0 (0-100) /uL PT 12.5 (10.1-12.7) SECONDS INR 1.1 (0.9-1.3) APTT 26 (26-36) SECONDS D-Dimer (<500) ng/ml Sodium 135 L (137-145) mmol/L Potassium 4.1 (3.4-5.1) mmol/L Chloride 103 (98-107) mmol/L Carbon Dioxide 22 (22-32) mmol/L BUN 27 H (9-20) mg/dL Creatinine 1.39 H (0.66-1.25) mg/dL Estimated GFR 51 L (>60) mL/min BUN/Creatinine Ratio 19.4 (6-22) Glucose 133 H (80-110) mg/dL Lactate (0.7-2.1) mmol/L Calcium 9.0 (8.4-10.2) mg/dL Magnesium 2.1 (1.6-2.3) mg/dL Total Bilirubin 0.9 (0.2-1.3) mg/dL AST 23 (17-59) IU/L ALT 21 (<50) IU/L Alkaline Phosphatase 72 (38-126) U/L Total Creatine Kinase 108 (55-170) U/L CK-MB (CK-2) (<2.37) ng/mL CK-MB (CK-2) Rel Index Not Reportable Troponin I < 0.012 (0.01-0.034) ng/mL Total Protein 7.3 (6.3-8.2) g/dL Albumin 4.3 (3.5-5.0) g/dL Globulin 3.0 (1.7-4.1) g/dL Albumin/Globulin Ratio 1.4 (1.0-2.8) Lipase 105 (23-300) U/L Procalcitonin (<0.5) ng/mL Urine RBC (0-5/HPF) Urine WBC (0-5/HPF) Ur Squamous Epith Cells (0-5/HPF) Urine Bacteria (None) Ur Culture Indicated? Chlamy pneumoniae PCR (Not Detect) Adenovirus (PCR) (Not Detect) B. pertussis DNA (PCR) (Not Detecte) B.parapertussis DNA PCR (Not Detecte) Coronavirus OC43 (PCR) (Not Detect) Coronavirus HKU1 (PCR) (Not Detect) Coronavirus 229E (PCR) (Not Detect) SARS-CoV-2 (PCR) (Not Detecte) Coronavirus NL63 (PCR) (Not Detect) Human Metapneumovir PCR (Not Detect) Influenza Type A (PCR) (Not Detect) Influenza Type B (PCR) (Not Detect) M. pneumoniae (PCR) (Not Detect) Parainfluenza 1 (PCR) (Not Detect) Parainfluenza 2 (PCR) (Not Detect) Parainfluenza 3 (PCR) (Not Detect) Parainfluenza 4 (PCR) (Not Detect) RSV (PCR) (Not Detect) Entero/Rhino (PCR) (Not Detect) 12/31/22 12/31/22 12/31/22 Range/Units 09:45 09:45 09:45 WBC (4.5-11.0) X10^3/uL RBC (4.5-5.9) X10^6/uL Hgb (13.5-17.5) g/dL Hct (41-53) % MCV (80-100) fL MCH (26-34) PG MCHC (30-36) % RDW (11.6-14.8) % Plt Count (150-400) X10^3/uL Neut % (Auto) (50-75) % Lymph % (Auto) (25-40) % Nance % (Auto) (3-14) % Eos % (Auto) (2-4) % Baso % (Auto) (0-2) % Neut # (Auto) (2547-2278) /uL Lymph # (Auto) (0179-3455) /uL Nance # (Auto) (0-900) /uL Eos # (Auto) (0-450) /uL Baso # (Auto) (0-100) /uL PT (10.1-12.7) SECONDS INR (0.9-1.3) APTT (26-36) SECONDS D-Dimer 488 (<500) ng/ml Sodium (137-145) mmol/L Potassium (3.4-5.1) mmol/L Chloride (98-107) mmol/L Carbon Dioxide (22-32) mmol/L BUN (9-20) mg/dL Creatinine (0.66-1.25) mg/dL Estimated GFR (>60) mL/min BUN/Creatinine Ratio (6-22) Glucose (80-110) mg/dL Lactate 1.2 (0.7-2.1) mmol/L Calcium (8.4-10.2) mg/dL Magnesium (1.6-2.3) mg/dL Total Bilirubin (0.2-1.3) mg/dL AST (17-59) IU/L ALT (<50) IU/L Alkaline Phosphatase (38-126) U/L Total Creatine Kinase (55-170) U/L CK-MB (CK-2) (<2.37) ng/mL CK-MB (CK-2) Rel Index Troponin I (0.01-0.034) ng/mL Total Protein (6.3-8.2) g/dL Albumin (3.5-5.0) g/dL Globulin (1.7-4.1) g/dL Albumin/Globulin Ratio (1.0-2.8) Lipase (23-300) U/L Procalcitonin 0.08 (<0.5) ng/mL Urine RBC (0-5/HPF) Urine WBC (0-5/HPF) Ur Squamous Epith Cells (0-5/HPF) Urine Bacteria (None) Ur Culture Indicated? Chlamy pneumoniae PCR (Not Detect) Adenovirus (PCR) (Not Detect) B. pertussis DNA (PCR) (Not Detecte) B.parapertussis DNA PCR (Not Detecte) Coronavirus OC43 (PCR) (Not Detect) Coronavirus HKU1 (PCR) (Not Detect) Coronavirus 229E (PCR) (Not Detect) SARS-CoV-2 (PCR) (Not Detecte) Coronavirus NL63 (PCR) (Not Detect) Human Metapneumovir PCR (Not Detect) Influenza Type A (PCR) (Not Detect) Influenza Type B (PCR) (Not Detect) M. pneumoniae (PCR) (Not Detect) Parainfluenza 1 (PCR) (Not Detect) Parainfluenza 2 (PCR) (Not Detect) Parainfluenza 3 (PCR) (Not Detect) Parainfluenza 4 (PCR) (Not Detect) RSV (PCR) (Not Detect) Entero/Rhino (PCR) (Not Detect) 12/31/22 12/31/22 12/31/22 Range/Units 11:50 12:00 13:15 WBC (4.5-11.0) X10^3/uL RBC (4.5-5.9) X10^6/uL Hgb (13.5-17.5) g/dL Hct (41-53) % MCV (80-100) fL MCH (26-34) PG MCHC (30-36) % RDW (11.6-14.8) % Plt Count (150-400) X10^3/uL Neut % (Auto) (50-75) % Lymph % (Auto) (25-40) % Nance % (Auto) (3-14) % Eos % (Auto) (2-4) % Baso % (Auto) (0-2) % Neut # (Auto) (1115-4508) /uL Lymph # (Auto) (5658-5414) /uL Nance # (Auto) (0-900) /uL Eos # (Auto) (0-450) /uL Baso # (Auto) (0-100) /uL PT (10.1-12.7) SECONDS INR (0.9-1.3) APTT (26-36) SECONDS D-Dimer (<500) ng/ml Sodium (137-145) mmol/L Potassium (3.4-5.1) mmol/L Chloride (98-107) mmol/L Carbon Dioxide (22-32) mmol/L BUN (9-20) mg/dL Creatinine (0.66-1.25) mg/dL Estimated GFR (>60) mL/min BUN/Creatinine Ratio (6-22) Glucose (80-110) mg/dL Lactate (0.7-2.1) mmol/L Calcium (8.4-10.2) mg/dL Magnesium (1.6-2.3) mg/dL Total Bilirubin (0.2-1.3) mg/dL AST (17-59) IU/L ALT (<50) IU/L Alkaline Phosphatase (38-126) U/L Total Creatine Kinase (55-170) U/L CK-MB (CK-2) (<2.37) ng/mL CK-MB (CK-2) Rel Index Troponin I < 0.012 (0.01-0.034) ng/mL Total Protein (6.3-8.2) g/dL Albumin (3.5-5.0) g/dL Globulin (1.7-4.1) g/dL Albumin/Globulin Ratio (1.0-2.8) Lipase (23-300) U/L Procalcitonin (<0.5) ng/mL Urine RBC None seen (0-5/HPF) Urine WBC None seen (0-5/HPF) Ur Squamous Epith Cells None seen (0-5/HPF) Urine Bacteria None seen (None) Ur Culture Indicated? Cult not indicated Chlamy pneumoniae PCR Not detected (Not Detect) Adenovirus (PCR) Not detected (Not Detect) B. pertussis DNA (PCR) Not detected (Not Detecte) B.parapertussis DNA PCR Not detected (Not Detecte) Coronavirus OC43 (PCR) Not detected (Not Detect) Coronavirus HKU1 (PCR) Not detected (Not Detect) Coronavirus 229E (PCR) Not detected (Not Detect) SARS-CoV-2 (PCR) Detected H (Not Detecte) Coronavirus NL63 (PCR) Not detected (Not Detect) Human Metapneumovir PCR Not detected (Not Detect) Influenza Type A (PCR) Not detected (Not Detect) Influenza Type B (PCR) Not detected (Not Detect) M. pneumoniae (PCR) Not detected (Not Detect) Parainfluenza 1 (PCR) Not detected (Not Detect) Parainfluenza 2 (PCR) Not detected (Not Detect) Parainfluenza 3 (PCR) Not detected (Not Detect) Parainfluenza 4 (PCR) Not detected (Not Detect) RSV (PCR) Not detected (Not Detect) Entero/Rhino (PCR) Not detected (Not Detect) Point of Care Testing Glucose POC 137 Urine Dip Bedside Urine Glucose Negative Bedside Urine Bilirubin - Negative Bedside Urine Ketone - Negative Urine Specific [place] 1.015 Bedside Urine Occult Blood - Negative Bedside Urine pH 6.0 Bedside Urine Protein - Negative Bedside Urine Urobilinogen - Negative Bedside Urine Nitrite - Negative Bedside Urine Leukocytes - Negative Esterase Imaging Data Chest x-ray: Radiologist's Impression: Close Chest X-Ray (Signed) Ash Schaefer - 12/31/22 Brain MRI (Signed) Sharif Hernandez - 11/27/22 Chest X-Ray (Signed) Jose Alejandro Mendez - 11/22/22 Lumbar Spine MRI (Signed) Sharif Hernandez - 12/16/21 Lumbar Spine MRI (Signed) Ash Schaefer - 12/15/21 Injection Lumbar, Sacrum (Signed) Sharif Hernandez - 10/25/21 DEXA Result 04/05/21 Bone Densitometry 04/05/21 Facet Joint Injection X-Ray (Signed) Sharif Hernandez - 02/17/21 Lumbar Spine MRI (Signed) Alex Nolen - 01/20/21 Lumbar Spine X-Ray (Signed) RubiDelio rosenthalmichelle - 11/11/20 Finger X-Ray (Signed) Perico Hunt - 06/02/20 Shoulder X-Ray (Signed) Jerel Ramirez - 09/04/19 Launch?Image [address] [address] XRay Report Signed Patient: Miguelito Parra MR#: [id number] : 1940 Acct:[id number] Age/Sex: 82 / M Date of Service: 12/31/22 Loc: ED Accession Number: [id number] ?? Procedure: XR chest 1V Ordering Provider: Estrella Coyle D.O. PROCEDURE:? XR CHEST 1V ? INDICATIONS:? chest pain ? TECHNIQUE:? One view of the chest was acquired.? ? COMPARISON:? [facility], , XR CHEST 2V, 11/22/2022, 6:44. ? FINDINGS:? ? Surgical changes and devices:? None.? ? Lungs and pleura:? Lungs are clear.? No pleural effusions or pneumothorax.? ? Mediastinum:? Mediastinal contours appear normal.? Heart size is normal.? ? Bones and chest wall:? No suspicious bony lesions.? Overlying soft tissues appear unremarkable.? ? IMPRESSION:? No acute cardiopulmonary findings ? ? ? Approved by: Ash Schaefer M.D. on 12/31/2022 at 9:29? ECG Data Attestation: I personally reviewed and interpreted this ECG as follows: Prior ECG tracings: available for review Interpretation: Sinus rhythm rate of 61 IA 178 QRS 88 QTC of 398. No acute ST changes appreciated patient has prior from 11/15/2013 which appears similar. Sinus rhythm rate of 68 IA 160 QRS 72 QTC 393. No acute ST changes appreciated. Appears similar to prior from today. MDM Narrative Medical decision making narrative: 82-year-old male with syncopal episode patient had preceding symptoms of feeling hot diaphoretic about 5 minutes before but otherwise had felt normal this morning afterwards has had some nausea 1 episode of a small amount of emesis. And feels fatigued or tired afterwards. Patient does have history of chronic kidney disease potential for electrolyte abnormalities, dehydration he is on prednisone 7.5 mg daily but states he has been at this dose for about a year, he states they tried to drop down to 5 mg but had flaring of his dermatitis and returned him to 7.5. Patient had CBC, CMP, lipase, troponin, EKG, dimer was added on as well as urine sample and chest x-ray. Vitals here on arrival or fairly appropriate. Patient was 1000 mL of fluids as well as for Zofran as he still has some nausea. He has felt improved since then ambulated in the department. Workup shows creatinine appears stable, troponins are negative x2, no acute EKG changes, dimer is negative, urine does not show signs of infection. Patient has normal white count, hematocrit 39 with platelets of 225 leftward shift. Sodium is 135 with a glucose of 133. BUN was 27 fairly consistent with priors. Patient's chest x-ray shows no acute change. Vitals have been appropriate here in the department respiratory panel was sent he has been asymptomatic but was having some rigors, lactate, procalcitonin cultures. Lactate protocol are negative. Cultures are pending but respiratory panel is positive for COVID feel this is likely source. Patient feels much improved, reviewed findings with patient and family, return precautions, isolation precautions and all questions answered. Discharge Plan Departure Patient Disposition: Home Clinical Impression: Syncope, COVID-19 virus infection Instructions: DI for Syncope in Adults (Fainting), DI for COVID-19 (Suspected or Confirmed ) Activity Restrictions/Additional Instructions: You have tested positive for COVID-19 today. The rest of your workup is overall reassuring. Your renal function appears stable today. You may take Tylenol up to a 1000 mg every 6 hours for muscle aches, chills or fevers. Make sure you are hydrating regularly. Please return if you are having recurrent episodes of syncope or passing out, confusion, new chest pain, shortness of breath, persistent vomiting, new swelling of her extremities or other new or concerning changes. Prescriptions: No Action triamcinolone acetonide 0.025 % cream 1 applic topical .prn Qty: 15 0RF Rx Instructions: apply PRN per dermatology consult note dosage not specified in dermatology note enalapril maleate 2.5 mg tablet 2.5 mg PO DAILY Qty: 90 3RF atorvastatin 10 mg tablet See Rx Instructions .ROUTE .COMPLEX Qty: 90 0RF Dose Instruction: TAKE 1 TABLET BY MOUTH DAILY Rx Instructions: TAKE 1 TABLET BY MOUTH DAILY ascorbate calcium (vitamin C) 500 mg tablet 500 mg PO DAILY vit C,E,Zn,By-poytk8-bkn-zeax 250-2.5-0.5 mg capsule PO hydrochlorothiazide 25 mg tablet 25 mg PO DAILY PRN (Reason: Elevated blood pressure) Qty: 30 11RF Rx Instructions: For BP >140/90 clobetasol 0.05 % lotion 1 applic topical DAILY azelastine 137 mcg (0.1 %) aerosol,spray intranasal Patient Comments: Administer 1 spray into each nostril 2 times a day cetirizine-pseudoephedrine [Zyrtec-D] 5-120 mg tablet extended release 12 hr 1 tab PO DAILY carvedilol 6.25 mg tablet 6.25 mg PO BID Rx Instructions: must administer with a meal/food prednisone 5 mg tablet 5 mg PO Q OTHER DAY prednisone 2.5 mg tablet 2.5 mg PO Q OTHER DAY Referrals: Ming Blue MD [Primary Care Provider] - Stand Alone Forms: Patient Portal/API
[2022-12-31] MEDS: SODIUM CHLORIDE 0.9% 1,000 ML 1000 ML IV (10:05)
[2022-12-31] MEDS: ONDANSETRON 4 MG/2 ML INJ IV (10:06)
[2022-12-31 10:09] LABS: Add Manual Diff / Slide Review NO; Basophils Absolute Auto 0 /uL (0-100); Basophils Percent Auto 0.3 % (0-2); Eosinophils Absolute Auto 100 /uL (0-450); Eosinophils Percent Auto 1.3 % (2-4); Hematocrit 39.3 % (41-53); Hemoglobin 13.5 g/dL (13.5-17.5); Lymphocytes Absolute Auto 400 /uL (1100-4500); Lymphocytes Percent Auto 5.7 % (25-40); Mean Corpuscular HGB Conc 34.4 % (30-36); Mean Corpuscular Volume 90.3 fL (80-100); Monocytes Absolute Auto 900 /uL (0-900); Monocytes Percent Auto 11.7 % (3-14); Neutrophils Absolute Auto 6200 /uL (1500-7000); Platelet Count 225 X10^3/uL (150-400); Red Blood Cell Count 4.35 X10^6/uL (4.5-5.9); Red Cell Distribution Width 13.6 % (11.6-14.8); White Blood Cell Count 7.6 X10^3/uL (4.5-11.0)
[2022-12-31 10:14] LABS: INR 1.1 (0.9-1.3); Prothrombin Time 12.5 SECONDS (10.1-12.7)
[2022-12-31 10:16] LABS: PTT Partial Thromboplastin Tim 26 SECONDS (26-36)
[2022-12-31 10:19] LABS: Alanine Aminotransferase 21 IU/L (<50); Albumin 4.3 g/dL (3.5-5.0); Albumin Globulin Ratio 1.4 (1.0-2.8); Alkaline Phosphatase 72 U/L (38-126); Aspartate Aminotransferase 23 IU/L (17-59); BUN Creatinine Ratio 19.4 (6-22); Bilirubin Total 0.9 mg/dL (0.2-1.3); Blood Urea Nitrogen 27 mg/dL (9-20); Carbon Dioxide 22 mmol/L (22-32); Chloride 103 mmol/L (98-107); Creatine Kinase 108 U/L (55-170); Estimated Glomerular Filt Rate 51 mL/min (>60); Glucose 133 mg/dL (80-110); HEMOLYSIS < 15 (0-50); Lipase 105 U/L (23-300); Magnesium 2.1 mg/dL (1.6-2.3); Potassium 4.1 mmol/L (3.4-5.1); Sodium 135 mmol/L (137-145); Total Protein 7.3 g/dL (6.3-8.2)
[2022-12-31 10:24] LABS: D Dimer 488 ng/ml (<500)
[2022-12-31 10:30] LABS: Troponin I < 0.012 ng/mL (0.01-0.034)
[2022-12-31 12:09] LABS: Lactate (Lactic Acid) 1.2 mmol/L (0.7-2.1)
--- NOTE | 2022-12-31 12:24 | PC.NURSE ---
Blood specimens obtained and sent to lab. Pt denies pain or discomfort, reports that earlier symptoms have resolved. Drank cup of juice. States he is not yet able to provide a urine specimen.
[2022-12-31 12:26] LABS: Procalcitonin 0.08 ng/mL (<0.5)
[2022-12-31 13:02] LABS: Troponin I < 0.012 ng/mL (0.01-0.034)
--- NOTE | 2022-12-31 13:28 | PC.NURSE ---
Pt ambulated approx 150 feet with steady gait. Denies dizziness, lightheadedness, or any other concerning symptoms.
[2022-12-31 13:49] LABS: Bacteria Urine None Seen; RBC Urine None Seen (0-5/HPF); Squamous Epithelial Cell Urine None Seen (0-5/HPF); WBC Urine None Seen (0-5/HPF)
[2022-12-31 13:50] LABS: Culture Indicated Urine Cult Not Indicated
[2022-12-31 13:59] LABS: Adenovirus Not Detected (Not Detect); B. parapertussis Not Detected (Not Detecte); Bordetella pertussis Not Detected (Not Detecte); Chlamydophila pneumoniae Not Detected (Not Detect); Coronavirus 229E Not Detected (Not Detect); Coronavirus HKU1 Not Detected (Not Detect); Coronavirus NL 63 Not Detected (Not Detect); Coronavirus OC43 Not Detected (Not Detect); Human Metapneumovirus Not Detected (Not Detect); Human Rhinovirus/Enterovirus Not Detected (Not Detect); Influenza A Not Detected (Not Detect); Influenza B Not Detected (Not Detect); Mycoplasma pneumoniae Not Detected (Not Detect); Parainfluenza Virus 1 Not Detected (Not Detect); Parainfluenza Virus 2 Not Detected (Not Detect); Parainfluenza Virus 3 Not Detected (Not Detect); Parainfluenza Virus 4 Not Detected (Not Detect); Respiratory Syncytial Virus Not Detected (Not Detect); SARS- CoV-2 Detected (Not Detecte)
== END 2022-12-31 14:17 | disposition home or self-care (01) ==
PROVIDERS: Emergency Provider Emergency Medicine; PCP Family Medicine
DX: Z20.822 Contact with and (suspected) exposure to COVID-19 (principal); U07.1 COVID-19; R55 Syncope and collapse; R07.9 Chest pain, unspecified
CPT/HCPCS: 36415; 71045; 80053; 81003; 81015; 82550; 82553; 83605; 83690; 83735; 84145; 84484; 85025; 85379; 85610; 85730; 87040; 87633; 93005; 96361; 96374; 99284; J2405

== ENCOUNTER → 2023-02-03 07:33 | Outpatient (CLI) | payer MEDICARE, OTHER, SELFPAY ==
--- NOTE | 2023-02-03 07:35 | DI.RAD.S_ITS ---
PROCEDURE: XR SHOULDER LT MIN 2V INDICATIONS: LEFT SHOULDER PAIN TECHNIQUE: 3 views of the shoulder were acquired. COMPARISON: [facility], CR, XR SHOULDER LT MIN 2V, 09/04/2019, 6:36. FINDINGS: Bones: No acute fractures or dislocations. No suspicious bony lesions. Visualized ribs appear intact. Mild degenerative changes of the acromioclavicular joint. Soft tissues: No suspicious soft tissue calcifications. IMPRESSION: No acute osseous abnormality. If clinical suspicion and/or symptoms persist, additional imaging with repeat plain films, or advanced imaging (e.g. CT, MRI) may be helpful for further assessment. Approved by: Adrian Montesinos M.D. on 02/03/2023 at 8:06
== END ==
PROVIDERS: PCP Family Medicine; Referring Provider Physical Medicine & Rehabilitation; Visit Provider Physical Medicine & Rehabilitation
DX: M25.512 Pain in left shoulder (principal)
CPT/HCPCS: 73030

== ENCOUNTER → 2023-04-12 09:36 | Outpatient (CLI) | payer MEDICARE, OTHER, SELFPAY ==
--- NOTE | 2023-04-12 09:37 | DI.RAD.S_ITS ---
Bone Density Report Name: HERO SPRAGUE Age: 82 Sex: Male Ethnicity: White Date of : 1940 Indication: screening for osteoporosis; Referring Provider: BELLO MOODY Study: Bone densitometry was performed. Exam Date: April 12, 2023 Accession number: [id number] Bone Density: Region BMD T-score Z-score Classification AP Spine(L1, L2) 1.211 2.1 2.6 Normal Femoral Neck (Left) 0.910 0.5 1.4 Normal Total Hip (Left) 1.164 1.8 2.0 Normal Femoral Neck (Right) 0.904 0.5 1.4 Normal Total Hip (Right) 1.118 1.4 1.7 Normal Total Hip Mean 1.141 1.6 1.9 Normal World Health Organization criteria for BMD impression classify patients as: Normal (T-score at or above -1.0), Osteopenia (T-score between -1.0 and -2.5), or Osteoporosis (T-score at or below -2.5). 10-year Fracture Risk: FRAX not reported because: All T-scores for Spine Total, Hip Total, Femoral Neck at or above -1.0 Previous Exams: -- Region Exam Age BMD T-score BMD Change BMD Change Date g/cm2 vs Baseline vs Previous -- AP Spine (L1-L2) 04/12/2023 82 1.211 2.1 -0.036 (-2.9%)# -0.036 (-2.9%)# 04/05/2021 80 1.247 2.4 Total Hip(Left) 04/12/2023 82 1.164 1.8 -0.040 (-3.3%)# -0.040 (-3.3%)# 04/05/2021 80 1.204 2.1 Total Hip(Right) 04/12/2023 82 1.118 1.4 -0.050 (-4.3%)# -0.050 (-4.3%)# 04/05/2021 80 1.169 1.9 -- *Denotes significance at 95% confidence level, LSC for AP Spine = 0.022 g/cm2, LSC for Total Hip = 0.027 g/cm2 # Denotes dissimilar scan types or analysis methods Impression: The patient has normal bone mass. No significant bone loss was observed. Discussion: BONE DENSITY IS ABOVE THE MINIMUM DESIRABLE LEVEL AT ALL SKELETAL SITES TESTED. This patient's bone mineral density is above the minimum desirable level (T-score -1.0 or better) at all sites measured. The patient should follow a healthful lifestyle (good nutrition with adequate calcium and vitamin D, and appropriate weight-bearing exercise). Follow-Up: Consider repeating this study in 5 years or sooner if there is some new clinical indication. Reported by: ANTONIO LEDESMA M.D. on 04/12/2023 10:06:00 AM.
== END ==
PROVIDERS: PCP Family Medicine; Referring Provider Family Medicine; Visit Provider Family Medicine
DX: Z79.52 Long term (current) use of systemic steroids; Z13.820 Encounter for screening for osteoporosis
CPT/HCPCS: 77080

== ENCOUNTER → 2023-05-24 06:58 | Outpatient (CLI) | payer MEDICARE, OTHER, SELFPAY ==
[2023-05-24 08:18] LABS: Hematocrit 41.1 % (41-53); Hemoglobin 14.1 g/dL (13.5-17.5)
[2023-05-24 08:45] LABS: BUN Creatinine Ratio 23.4 (6-22); Blood Urea Nitrogen 29 mg/dL (9-20); Calcium 9.6 mg/dL (8.4-10.2); Carbon Dioxide 25 mmol/L (22-32); Chloride 101 mmol/L (98-107); Estimated Glomerular Filt Rate 58 mL/min (>60); Glucose 121 mg/dL (80-110); HEMOLYSIS < 15 (0-50); Potassium 4.4 mmol/L (3.4-5.1); Sodium 135 mmol/L (137-145)
[2023-05-24 10:10] LABS: Creatinine Urine Random 94.3 mg/dL; Protein (Total) Urine Random 9 mg/dL (0-12); Protein Creatinine Ratio Urine 0.09 GRAM/24H
[2023-05-25 12:06] LABS: Parathyroid Hormone Int 49 pg/mL (15-65)
== END ==
PROVIDERS: PCP Family Medicine; Referring Provider Student in an Organized Health Care Education/Training Program; Visit Provider Student in an Organized Health Care Education/Training Program
DX: N05.9 Unspecified nephritic syndrome with unspecified morphologic changes (principal); D64.9 Anemia, unspecified; N25.81 Secondary hyperparathyroidism of renal origin; R80.9 Proteinuria, unspecified
CPT/HCPCS: 36415; 80048; 82570; 83970; 84156; 85014; 85018

== ENCOUNTER → 2023-11-26 06:52 | Outpatient (CLI) | payer MEDICARE, OTHER, SELFPAY ==
[2023-11-26 07:36] LABS: Add Manual Diff / Slide Review NO; Basophils Absolute Auto 0 /uL (0-100); Basophils Percent Auto 0.4 % (0-2); Eosinophils Absolute Auto 100 /uL (0-450); Eosinophils Percent Auto 2.2 % (2-4); Hematocrit 40.1 % (41-53); Hemoglobin 13.6 g/dL (13.5-17.5); Lymphocytes Absolute Auto 1000 /uL (1100-4500); Lymphocytes Percent Auto 16.4 % (25-40); Mean Corpuscular HGB Conc 33.9 % (30-36); Mean Corpuscular Hemoglobin 30.7 PG (26-34); Mean Corpuscular Volume 90.6 fL (80-100); Monocytes Absolute Auto 600 /uL (0-900); Monocytes Percent Auto 10.8 % (3-14); Neutrophils Absolute Auto 4200 /uL (1500-7000); Neutrophils Percent Auto 70.2 % (50-75); Platelet Count 197 X10^3/uL (150-400); Red Blood Cell Count 4.43 X10^6/uL (4.5-5.9); Red Cell Distribution Width 13.4 % (11.6-14.8)
[2023-11-26 07:48] LABS: Alanine Aminotransferase 17 IU/L (<50); Albumin 4.5 g/dL (3.5-5.0); Albumin Globulin Ratio 1.6 (1.0-2.8); Alkaline Phosphatase 65 U/L (38-126); Aspartate Aminotransferase 27 IU/L (17-59); BUN Creatinine Ratio 21.1 (6-22); Bilirubin Total 0.9 mg/dL (0.2-1.3); Blood Urea Nitrogen 27 mg/dL (9-20); Carbon Dioxide 26 mmol/L (22-32); Chloride 108 mmol/L (98-107); Cholesterol 142 mg/dL (140-199); Estimated Glomerular Filt Rate 56 mL/min (>60); Globulin 2.9 g/dL (1.7-4.1); Glucose 104 mg/dL (80-110); HDL Cholesterol 55 mg/dL (40-60); HEMOLYSIS < 15 (0-50); LDL Cholesterol Calculated 67 mg/dL (<100); Sodium 140 mmol/L (137-145); Total Protein 7.4 g/dL (6.3-8.2); Triglycerides 102 mg/dL (35-150)
[2023-11-26 08:17] LABS: Prostate Specific Antigen Scrn 0.953 ng/mL (0.1-4.0)
[2023-11-26 08:19] LABS: Appearance Urine UA CLEAR; Bilirubin Urine UA NEGATIVE (NEGATIVE); Color Urine UA YELLOW; Glucose Urine UA NEGATIVE (Negative); Ketones Urine UA NEGATIVE (NEGATIVE); Leukocyte Esterase Urine UA NEGATIVE (NEGATIVE); Nitrite Urine UA NEGATIVE (Negative); Occult Blood Urine UA NEGATIVE (Negative); Protein Urine UA NEGATIVE (Negative); Urobilinogen Urine UA 0.2 E.U./dL (0.2); pH Urine UA 5.5 (4.5-8.0)
[2023-11-26 08:19] LABS: TSH w/ Reflex to FT4 1.59 uIU/mL (0.47-4.68)
[2023-11-26 08:25] LABS: Bacteria Urine None Seen; Culture Indicated Urine Cult Not Indicated; RBC Urine None Seen (0-5/HPF); Squamous Epithelial Cell Urine None Seen (0-5/HPF); Urine Volume 10mL (spun); WBC Urine None Seen (0-5/HPF)
[2023-11-26 08:26] LABS: Creatinine Urine Random 104.4 mg/dL
[2023-11-26 08:30] LABS: Microalbumi Creatinin Ratio Ur 45.9 ug/mg CR (<30); Microalbumin Urine Random 4.8 mg/dL (0-1.6)
[2023-11-27 08:45] LABS: Apolipoprotein B 70 mg/dL (<90)
== END ==
PROVIDERS: PCP Family Medicine; Referring Provider Family Medicine; Visit Provider Family Medicine
DX: Z00.00 Encounter for general adult medical examination without abnormal findings (principal); E78.2 Mixed hyperlipidemia; Z12.5 Encounter for screening for malignant neoplasm of prostate; M51.26 Other intervertebral disc displacement, lumbar region; I12.9 Hypertensive chronic kidney disease with stage 1 through stage 4 chronic kidney disease, or unspecified chronic kidney disease; N18.32 Chronic kidney disease, stage 3b; R35.0 Frequency of micturition
CPT/HCPCS: 36415; 80053; 80061; 81001; 82043; 82172; 82570; 84443; 85025; G0103

== ENCOUNTER → 2023-11-28 08:54 | Outpatient (CLI) | payer MEDICARE, OTHER, SELFPAY ==
--- NOTE | 2023-11-28 08:55 | DI.RAD.S_ITS ---
PROCEDURE: XR LUMBAR SPINE MIN 4V INDICATIONS: BACK PAIN TECHNIQUE: 5 views of the lumbar spine were acquired, including bilateral oblique views. COMPARISON: [facility], CR, XR LUMBAR SPINE MIN 4V, 11/11/2020, 11:18. FINDINGS: Bones: 5 nonrib-bearing vertebrae are present. S-shaped curvature of the spine with mild dextroconvex curvature centered at L1 and mild levoconvex curvature centered at L5. Moderate to marked multilevel degenerative changes with osteophytosis, disc height loss and facet arthropathy, notably at L3-L4, L4-L5 and L5-S1. Moderate to severe osseous neural foraminal narrowing at L4-5 and L5-S1. No vertebral body compression fractures. No suspicious bony lesions. Soft tissues: Overlying bowel gas pattern is normal. No suspicious soft tissue calcifications. Calcification of the abdominal aorta. Oblique images: No pars defects. IMPRESSION: 1. No acute bony abnormality. 2. Moderate to severe multilevel degenerative changes, notably at L4-5 and L5-S1 where there is moderate to severe osseous neural foraminal narrowing. Dictated by: Luis Solomon M.D. on 11/28/2023 at 11:55 Approved by: Luis Solomon M.D. on 11/28/2023 at 11:57
== END ==
PROVIDERS: PCP Family Medicine; Referring Provider Physical Medicine & Rehabilitation; Visit Provider Physical Medicine & Rehabilitation
DX: M47.816 Spondylosis without myelopathy or radiculopathy, lumbar region (principal); M47.817 Spondylosis without myelopathy or radiculopathy, lumbosacral region; M48.061 Spinal stenosis, lumbar region without neurogenic claudication; M48.07 Spinal stenosis, lumbosacral region; M54.9 Dorsalgia, unspecified
CPT/HCPCS: 72110

== ENCOUNTER 2023-12-18 14:52 | Outpatient (CLI) | payer MEDICARE, OTHER, SELFPAY ==
[2023-12-18] VITALS (7 sets, daily range): BP systolic 139–176; BP diastolic 65–84; PULSE 58–63; RESP 16–20; TEMP 36.9; O2SAT 97–100
--- NOTE | 2023-12-18 15:30 | DI.RAD.S_ITS ---
PROCEDURE: PAIN L/S FACET INJ/BLK 1ST JOHANA INDICATIONS: L4-L5 and S1 medial branch block LA COMPARISON: [facility], XA, PAIN L/S FACET INJ/BLK 1ST JOHANA, 02/17/2021, 9:04. [facility], CR, XR LUMBAR SPINE MIN 4V, 11/28/2023, 8:55. FINDINGS: Fluoroscopic spot filming was performed to verify placement of spinal needles at the L4 through S1 level(s), as labeled on the films. Appropriate location(s) of the needle tip(s) was confirmed by injection of iodinated contrast. IMPRESSION: L4 through S1 contrast and needle placement bilaterally. Dictated by: Kourtney Dale M.D. on 12/18/2023 at 17:06 Approved by: Kourtney Dale M.D. on 12/18/2023 at 17:06
[2023-12-18] MEDS: BUPIVACAINE 0.5% (PF) 10 ML VIAL 2 ML INJ (16:21)
[2023-12-18] MEDS: iopamidoL 15 ML VIAL 3 ML INJ (16:21)
[2023-12-18] MEDS: LIDOCAINE 1% 20 ML 5 ML INJ (16:22)
--- NOTE | 2023-12-18 16:31 | P.PCN_ITS ---
Date/Time/Diagnoses Date of procedure: 12/18/23 Time of procedure: 16:31 Pre-procedure diagnosis: 1. FACET ARTHROPATHY Post-procedure diagnosis: same Procedure Notes Procedure: 1. BILATERAL- L4, L5 and S1 DIAGNOSTIC MB BLOCKS with LA Anesthetic Indications: Miguelito is referred by Dr. Blue for treatment of Bilateral Axial LBP. Physician: Harshal Tubbs Total Fluoroscopy time (seconds): 8 Total sedation minutes: 0 Complications: none Procedure in detail & Post-procedure care: DESCRIPTION OF PROCEDURE Fluoroscopically guided, contrast-controlled bilateral L4, L5 and S1 medial branch blocks with 0.5cc of 0.5% Marcaine. Following review of allergy and review of potential side effects and complications, including, but not necessarily limited to, infection, allergic reaction, local tissue breakdown, nerve injury, paralysis, stroke and possible , the patient indicated that the patient understood and agreed to proceed. An informed consent document was signed by the patient, witnessed by a nurse, and placed in the patient's chart. After review of previous anaesthesic history and IV conscious sedation the patient was deemed safe to proceed with today's procedure with IV conscious sedation as ASA class II designation. Safety time-out was performed to confirm patient ID, procedure to be performed and site of procedure. IV sedation was not administered by the RN after DO order, titrated to patient comfort during the course of the procedure while the patient remained responsive to all verbal commands In the prone position, following sterile prep and drape of the lumbar region, the right L4, L5 and S1 anatomical location of the medial branch of the dorsal ramus was identified fluoroscopically. Subsequently an anesthetic skin wheal using 1% lidocaine solution was initiated at each of the anatomical spots. Subsequently then a 22-gauge 3.5-inch spinal needle was atraumatically introduced and advanced under fluoroscopic guidance at each of the corresponding sites at the right L4, L5 and S1 MB. After negative aspiration, 0.2cc of Isovue 200 was injected, confirming placement without vascular or intrathecal uptake. Subsequently then 0.5cc of 0.5% Marcaine solution was injected at each of the corresponding sites at the right L4, L5 and S1 medial branch locations. The identical procedure was replicated on the left. The patient tolerated the procedure well without signs or symptoms of complications prior to transfer to the recovery area continued monitoring without incident. Post-procedure, the patient was monitored initiating provocative activities to measure the amount of relief from block of the facetogenic pain. The patient reported a VAS of 7 prior to the procedure and a post-procedure VAS of 1. It has been a pleasure to assist in the diagnostic and therapeutic care of your patient. POST OP INSTRUCTIONS The patient was provided with a Pain Log to complete over the next several hours and subsequent days prior to the patient's follow up with the ordering physician. If the patient has resident care associate relief to the solution applied, then they may be a candidate for medial branch rhizotomy. The patient is aware, was provided, once again, with a Pain Log and will follow up with the referring physician for review and clinical correlation
--- NOTE | 2023-12-18 16:48 | PC.NURSE ---
Discharge Patient discharged home via POV with family friend Ingrid as local company flatbed truck driver. Patient had no sedation for the procedure. Upon standing at 1630 at the chair side after injection patient able to stand strong without help but R leg felt weak upon patient attempt to ambulate with stand by assist of this RN. Patient opted to remain in pain recovery for a few more minutes before going home. Patient given cookies and hot chocolate per request. Patient sat in chair for 10 minutes and asked to try ambulating again. This RN at patient's side as stand by assist. Patient able to ambulate and stated that he felt stronger and was ready to go home. This RN confirmed with patient that he felt safe to go home. Patient stated yes and said that his was at home. Patient taken to POV via wheelchair by this RN.
== END 2023-12-18 16:40 | disposition home or self-care (01) ==
PROVIDERS: PCP Family Medicine; Referring Provider Physical Medicine & Rehabilitation; Visit Provider Physical Medicine & Rehabilitation
DX: M47.816 Spondylosis without myelopathy or radiculopathy, lumbar region (principal); M47.817 Spondylosis without myelopathy or radiculopathy, lumbosacral region
CPT/HCPCS: 64493; 64494

== ENCOUNTER 2024-01-10 14:29 | Outpatient (CLI) | payer MEDICARE, OTHER, SELFPAY ==
--- NOTE | 2024-01-10 15:00 | DI.RAD.S_ITS ---
PROCEDURE: PAIN L/S FACET INJ/BLK 1ST JOHANA INDICATIONS: Bilateral MBB L4, L5 and S1 SA COMPARISON: [facility], , PAIN L/S FACET INJ/BLK 1ST JOHANA, 12/18/2023, 16:14. FINDINGS: Fluoroscopic spot filming was performed to verify placement of spinal needles at the bilateral L4 through S1 level(s), as labeled on the films. Appropriate location(s) of the needle tip(s) was confirmed by injection of iodinated contrast. IMPRESSION: Contrast in needle placement bilaterally overlying L4 through S1. Dictated by: Kourtney Dale M.D. on 01/10/2024 at 17:01 Approved by: Kourtney Dale M.D. on 01/10/2024 at 17:01
[2024-01-10 15:15] VITALS: BP 162/70; PULSE 60; RESP 18; TEMP 36.5; O2SAT 98
[2024-01-10 15:44] VITALS: BP 176/79; PULSE 58; RESP 18; O2SAT 99
[2024-01-10] MEDS: iopamidoL 15 ML VIAL 3 ML INJ (15:47)
[2024-01-10] MEDS: LIDOCAINE 1% 20 ML 5 ML INJ (15:47)
[2024-01-10] MEDS: LIDOCAINE 2% INJ SDV 5ML 10 ML INJ (15:48)
[2024-01-10 15:49] VITALS: BP 177/80; PULSE 56; RESP 22; O2SAT 98
[2024-01-10 15:54] VITALS: BP 161/75; PULSE 57; RESP 16; O2SAT 97
--- NOTE | 2024-01-10 16:01 | P.PCN_ITS ---
Date/Time/Diagnoses Date of procedure: 01/10/24 Time of procedure: 16:01 Pre-procedure diagnosis: 1. FACET ARTHROPATHY Post-procedure diagnosis: same Procedure Notes Procedure: 1. BILATERAL- L4, L5 and S1 DIAGNOSTIC MB BLOCKS with SA Anesthetic Indications: Miguelito is referred by Dr. Blue for treatment of Bilateral Axial LBP. Physician: Harshal Tubbs Total Fluoroscopy time (seconds): 8 Total sedation minutes: 0 Complications: none Procedure in detail & Post-procedure care: DESCRIPTION OF PROCEDURE Fluoroscopically guided, contrast-controlled bilateral L4, L5 and S1 medial branch blocks with 0.5cc of 2% Lidocaine. Following review of allergy and review of potential side effects and complications, including, but not necessarily limited to, infection, allergic reaction, local tissue breakdown, nerve injury, paralysis, stroke and possible , the patient indicated that the patient understood and agreed to proceed. An informed consent document was signed by the patient, witnessed by a nurse, and placed in the patient's chart. After review of previous anaesthesic history and IV conscious sedation the patient was deemed safe to proceed with today's procedure with IV conscious sedation as ASA class II designation. Safety time-out was performed to confirm patient ID, procedure to be performed and site of procedure. IV sedation was not administered by the RN after DO order, titrated to patient comfort during the course of the procedure while the patient remained responsive to all verbal commands In the prone position, following sterile prep and drape of the lumbar region, the right L4, L5 and S1 anatomical location of the medial branch of the dorsal ramus was identified fluoroscopically. Subsequently an anesthetic skin wheal using 1% lidocaine solution was initiated at each of the anatomical spots. Subsequently then a 22-gauge 3.5-inch spinal needle was atraumatically introduced and advanced under fluoroscopic guidance at each of the corresponding sites at the right L4, L5 and S1 MB. After negative aspiration, 0.2cc of Isovue 200 was injected, confirming placement without vascular or intrathecal uptake. Subsequently then 0.5cc of 2% Lidocaine solution was injected at each of the corresponding sites at the right L4, L5 and S1 medial branch locations. The identical procedure was replicated on the left. The patient tolerated the procedure well without signs or symptoms of complications prior to transfer to the recovery area continued monitoring without incident. Post-procedure, the patient was monitored initiating provocative activities to measure the amount of relief from block of the facetogenic pain. The patient reported a VAS of 7 prior to the procedure and a post-procedure VAS of 1. It has been a pleasure to assist in the diagnostic and therapeutic care of your patient. POST OP INSTRUCTIONS The patient was provided with a Pain Log to complete over the next several hours and subsequent days prior to the patient's follow up with the ordering physician. If the patient has numerical control nesting operator relief to the solution applied, then they may be a candidate for medial branch rhizotomy. The patient is aware, was provided, once again, with a Pain Log and will follow up with the referring physician for review and clinical correlation
[2024-01-10 16:03] VITALS: BP 155/72; PULSE 59; RESP 16; O2SAT 100
[2024-01-10 16:15] VITALS: BP 149/74; PULSE 63; RESP 16; O2SAT 100
--- NOTE | 2024-01-10 17:52 | PC.NURSE ---
Patient returned to post room after injection has numbness to BLE, able to move legs up and down. 2 max assist with shuffling of feet to chair. Patient was reassessed and still noted to have numbness able to move legs while sitting in chair, attempted to stand and walk in place legs start buckling, patient sat back down. Dr Tubbs to assess patient, patient able to stand and perform strength test without incident. Still have weakness to right leg. Patient is able to stand walk in place, take steps, able to walk in pre procedure room with SBA, denies any pain or discomfort. Patient d/c home at 1750 with daughter Iris.
== END 2024-01-10 17:55 | disposition home or self-care (01) ==
PROVIDERS: PCP Family Medicine; Referring Provider Physical Medicine & Rehabilitation; Visit Provider Physical Medicine & Rehabilitation
DX: M47.816 Spondylosis without myelopathy or radiculopathy, lumbar region (principal); M47.817 Spondylosis without myelopathy or radiculopathy, lumbosacral region
CPT/HCPCS: 64493; 64494

== ENCOUNTER → 2024-01-19 08:18 | Outpatient (CLI) | payer MEDICARE, OTHER, SELFPAY ==
[2024-01-19 09:01] LABS: Hematocrit 39.4 % (41-53); Hemoglobin 13.4 g/dL (13.5-17.5)
[2024-01-19 09:18] LABS: BUN Creatinine Ratio 20.1 (6-22); Blood Urea Nitrogen 30 mg/dL (9-20); Calcium 8.6 mg/dL (8.4-10.2); Carbon Dioxide 26 mmol/L (22-32); Chloride 107 mmol/L (98-107); Estimated Glomerular Filt Rate 47 mL/min (>60); Glucose 96 mg/dL (80-110); HEMOLYSIS < 15 (0-50); Potassium 4.5 mmol/L (3.4-5.1); Sodium 137 mmol/L (137-145)
[2024-01-19 09:23] LABS: Creatinine Urine Random 143.95 mg/dL; Protein (Total) Urine Random 6 mg/dL (0-12); Protein Creatinine Ratio Urine 0.04 GRAM/24H
[2024-01-20 10:40] LABS: Parathyroid Hormone Int 74 pg/mL (15-65)
== END ==
PROVIDERS: PCP Family Medicine; Referring Provider Student in an Organized Health Care Education/Training Program; Visit Provider Student in an Organized Health Care Education/Training Program
DX: N25.9 Disorder resulting from impaired renal tubular function, unspecified (principal); D70.9 Neutropenia, unspecified; D63.1 Anemia in chronic kidney disease; N25.81 Secondary hyperparathyroidism of renal origin; R80.9 Proteinuria, unspecified
CPT/HCPCS: 36415; 80048; 82570; 83970; 84156; 85014; 85018

== ENCOUNTER → 2024-02-27 06:51 | Outpatient (CLI) | payer MEDICARE, OTHER, SELFPAY ==
[2024-02-27 07:57] LABS: Add Manual Diff / Slide Review NO; Basophils Absolute Auto 0 /uL (0-100); Basophils Percent Auto 0.6 % (0-2); Eosinophils Absolute Auto 200 /uL (0-450); Eosinophils Percent Auto 3.8 % (2-4); Hematocrit 38.5 % (41-53); Lymphocytes Absolute Auto 1100 /uL (1100-4500); Mean Corpuscular HGB Conc 33.9 % (30-36); Mean Corpuscular Hemoglobin 30.4 PG (26-34); Mean Corpuscular Volume 89.8 fL (80-100); Monocytes Absolute Auto 600 /uL (0-900); Monocytes Percent Auto 11.5 % (3-14); Neutrophils Absolute Auto 3400 /uL (1500-7000); Neutrophils Percent Auto 64.1 % (50-75); Platelet Count 198 X10^3/uL (150-400); Red Blood Cell Count 4.29 X10^6/uL (4.5-5.9); Red Cell Distribution Width 13.4 % (11.6-14.8); White Blood Cell Count 5.3 X10^3/uL (4.5-11.0)
[2024-02-27 08:28] LABS: Alanine Aminotransferase 18 IU/L (<50); Albumin 4.1 g/dL (3.5-5.0); Albumin Globulin Ratio 1.7 (1.0-2.8); Alkaline Phosphatase 66 U/L (38-126); Aspartate Aminotransferase 26 IU/L (17-59); BUN Creatinine Ratio 21.2 (6-22); Bilirubin Total 0.7 mg/dL (0.2-1.3); Blood Urea Nitrogen 29 mg/dL (9-20); Calcium 8.9 mg/dL (8.4-10.2); Carbon Dioxide 24 mmol/L (22-32); Chloride 107 mmol/L (98-107); Estimated Glomerular Filt Rate 52 mL/min (>60); Globulin 2.4 g/dL (1.7-4.1); Glucose 101 mg/dL (80-110); HEMOLYSIS < 15 (0-50); Potassium 4.5 mmol/L (3.4-5.1); Sodium 139 mmol/L (137-145); Total Protein 6.5 g/dL (6.3-8.2)
== END ==
PROVIDERS: PCP Family Medicine; Referring Provider Physician Assistant; Visit Provider Physician Assistant
DX: R60.0 Localized edema (principal)
CPT/HCPCS: 36415; 80053; 85025

== ENCOUNTER 2024-03-06 10:25 | Outpatient (CLI) | payer MEDICARE, OTHER, SELFPAY ==
[2024-03-06] VITALS (11 sets, daily range): BP systolic 112–145; BP diastolic 50–72; PULSE 54–60; RESP 11–21; TEMP 36.3; O2SAT 98–100
--- NOTE | 2024-03-06 11:00 | DI.RAD.S_ITS ---
PROCEDURE: PAIN L/S MED/LAT N RFA BILAT INDICATIONS: SPONDYLOSIS COMPARISON: None. FINDINGS: Fluoroscopic spot filming was performed to verify placement of spinal needles at the L4 through S1 level(s), as labeled on the films. Appropriate location(s) of the needle tip(s) was confirmed by injection of iodinated contrast. IMPRESSION: Needle placement overlying L4 through S1 Dictated by: Kourtney Dale M.D. on 03/06/2024 at 16:27 Approved by: Kourtney Dale M.D. on 03/06/2024 at 16:27
[2024-03-06] MEDS: MIDAZOLAM 2 MG/2 ML VIAL IV (11:17)
[2024-03-06] MEDS: LIDOCAINE 1% 20 ML INJ (11:22)
[2024-03-06] MEDS: BUPIVACAINE 0.5% (PF) 10 ML VIAL 5 ML INJ (11:22)
[2024-03-06] MEDS: MIDAZOLAM 2 MG/2 ML VIAL 1 MG IV (11:34)
--- NOTE | 2024-03-06 11:59 | P.PCN_ITS ---
Date/Time/Diagnoses Date of procedure: 03/06/24 Time of procedure: 11:59 Pre-procedure diagnosis: 1. RECALCITRANT FACET ARTHROPATHY Post-procedure diagnosis: same Procedure Notes Procedure: 1. BILATERAL L4 AND L5 MEDIAL BRANCH RADIOFREQUENCY NEUROTOMY AND S1 DORSAL RAMUS BRANCH RADIOFREQUENCY NEUROTOMY Indications: Miguelito is referred by Dr. Blue for treatment of facet arthropathy. Physician: Harshal Tubbs Total Fluoroscopy time (seconds): 16 Total sedation minutes: 32 Complications: none Procedure in detail & Post-procedure care: DESCRIPTION OF PROCEDURE Bilateral L4 and L5 medial branch radiofrequency neurotomy and bilateral S1 dorsal ramus radiofrequency neurotomy under fluoroscopy with conscious sedation. The patient is well known to this clinic having undergone previous facet injections with good but temporary relief. The patient has experienced appropriate, concordant relief with previous facet and median branch blocks but the patient's pain has been recalcitrant to further conservative measures. Therefore, based upon the patient's relief and persistent symptoms, the patient is considered an appropriate candidate for facet rhizotomy. All of the patient's questions regarding the risks versus benefits of the procedure, including, but not limited to, bleeding, infection, temporary as well as lasting nerve injury, paralysis, stroke, and , as well treatment alternatives were answered to satisfaction. After obtaining informed consent, denial of pertinent drug allergies, as well as being made aware of the potential risks of bleeding, infection, spinal cord trauma, paralysis, temporary and permanent nerve damage, seizure, stroke, and possible , the patient was brought to the fluoroscopy suite and positioned prone on the fluoroscopy table. The lumbar region was prepped in usual sterile fashion and covered with a fenestrated drape in the usual sterile fashion. Appropriate monitors applied including pulse oximeter, pulse, and blood pressure for regular monitoring throughout the procedure. After review of previous anaesthesic history and IV conscious sedation the patient was deemed safe to proceed with today's procedure with IV conscious sedation as ASA class II designation. Safety time-out was performed to confirm patient ID, procedure to be performed and site of procedure. IV sedation was accomplished with a combination of 3mg of Versed administered by the RN after DO order, titrated to patient comfort during the course of the procedure while the patient remained responsive to all verbal commands. After local infiltration using 1% lidocaine, under fluoroscopic guidance, a 10- cm RF insulated needle with a 10-mm active tip was positioned parallel to the junction of the right sacral ala and the superior articulating process where the S1 dorsal ramus resides. Needle placement was confirmed with motor stimulation of .5v on the right which produced local stimulation without radicular component. The stimulation was then increased to 2v with, once again, only local multifidus stimulation without radicular component. The needle was then removed and the identical procedure was performed along the length of the right L5 medial branch with motor stimulation at .7v on the right. The identical procedure was once again performed along the length of the right L4 medial branch with motor stimulation of .5v on the right. The medial branches were then anesthetised with 0.5% Marcaine. This was then followed by two discreet lesions performed at 80 degrees Celsius for 90 seconds each. The identical procedure was repeated on the left. The patient tolerated the procedure well without signs or symptoms of complications prior to transfer to the recovery area continued monitoring without incident. The patient was then transferred to the recovery area where they were observed for an appropriate period of time after the injection. The patient reported a VAS score of 8 prior to the procedure and a post-procedure VAS of 1. POST OP INSTRUCTIONS The patient was provided a Pain Log to continue to record the patient's response to the target-specific procedure prior to the patient's follow-up visit with the referring physician. Additionally, specific post-injection care instructions and a contact number to our office were provided if concerns arise regarding possible complications associated with the procedure are suspected.
== END 2024-03-06 12:09 | disposition home or self-care (01) ==
LOC: RAD 10:26
PROVIDERS: PCP Family Medicine; Referring Provider Physical Medicine & Rehabilitation; Visit Provider Physical Medicine & Rehabilitation
DX: M47.816 Spondylosis without myelopathy or radiculopathy, lumbar region (principal); M47.817 Spondylosis without myelopathy or radiculopathy, lumbosacral region
CPT/HCPCS: 64635; 64636; 99152; 99153; J2250

== ENCOUNTER → 2024-09-03 07:10 | Outpatient (CLI) | payer MEDICARE, OTHER, SELFPAY ==
[2024-09-03 08:00] LABS: Hematocrit 39.1 % (41-53); Hemoglobin 13.1 g/dL (13.5-17.5)
[2024-09-03 08:21] LABS: BUN Creatinine Ratio 20.2 (6-22); Blood Urea Nitrogen 33 mg/dL (9-20); Carbon Dioxide 25 mmol/L (22-32); Chloride 101 mmol/L (98-107); Estimated Glomerular Filt Rate 42 mL/min (>60); Glucose 103 mg/dL (80-110); HEMOLYSIS < 15 (0-50); Potassium 4.1 mmol/L (3.4-5.1); Sodium 137 mmol/L (137-145)
[2024-09-03 09:24] LABS: Creatinine Urine Random 67.21 mg/dL; Protein (Total) Urine Random 9 mg/dL (0-12); Protein Creatinine Ratio Urine 0.13 GRAM/24H
[2024-09-04 08:09] LABS: Parathyroid Hormone Int 65 pg/mL (15-65)
== END ==
PROVIDERS: PCP Family Medicine; Referring Provider Student in an Organized Health Care Education/Training Program; Visit Provider Student in an Organized Health Care Education/Training Program
DX: N05.9 Unspecified nephritic syndrome with unspecified morphologic changes (principal); D70.9 Neutropenia, unspecified; D63.1 Anemia in chronic kidney disease; N25.81 Secondary hyperparathyroidism of renal origin; R80.9 Proteinuria, unspecified
CPT/HCPCS: 36415; 80048; 82570; 83970; 84156; 85014; 85018

== ENCOUNTER → 2024-10-23 15:40 | Outpatient (CLI) | payer MEDICARE, OTHER, SELFPAY ==
--- NOTE | 2024-10-23 15:43 | DI.US.S_ITS ---
PROCEDURE: US SOFT TISSUE ABDOMEN INDICATIONS: eval R inguinal hernia vs mass TECHNIQUE: Real-time scanning was performed of the left inguinal region, with image documentation. COMPARISON: None. FINDINGS: Focused ultrasound examination of left inguinal region shows no fascial defect or herniation sac. No soft tissue mass or enlarged inguinal lymph nodes. IMPRESSION: No abnormality is seen in left inguinal region at patient's reported area palpable lump. Right inguinal region is not evaluated. Dictated by: Saad Colorado M.D. on 10/23/2024 at 17:05 Approved by: Saad Colorado M.D. on 10/23/2024 at 17:06
== END ==
LOC: US 15:42
PROVIDERS: PCP Family Medicine; Referring Provider Physician Assistant; Visit Provider Physician Assistant
DX: R19.09 Other intra-abdominal and pelvic swelling, mass and lump (principal)
CPT/HCPCS: 76705

== ENCOUNTER → 2024-10-28 06:57 | Outpatient (CLI) | payer MEDICARE, OTHER, SELFPAY ==
[2024-10-28 07:37] LABS: Hematocrit 37.1 % (41-53); Hemoglobin 12.6 g/dL (13.5-17.5)
[2024-10-28 08:33] LABS: BUN Creatinine Ratio 25.5 (6-22); Blood Urea Nitrogen 35 mg/dL (9-20); Calcium 9.1 mg/dL (8.4-10.2); Carbon Dioxide 21 mmol/L (22-32); Chloride 105 mmol/L (98-107); Estimated Glomerular Filt Rate 51 mL/min (>60); Glucose 104 mg/dL (80-110); HEMOLYSIS < 15 (0-50); Potassium 4.5 mmol/L (3.4-5.1); Sodium 136 mmol/L (137-145)
[2024-10-28 08:58] LABS: Creatinine Urine Random 41.67 mg/dL; Protein (Total) Urine Random 10 mg/dL (0-12); Protein Creatinine Ratio Urine 0.23 GRAM/24H
[2024-10-29 19:38] LABS: Calcium 8.9 mg/dL (8.6-10.2); Parathyroid Hormone, Intact 63 pg/mL (15-65)
== END ==
PROVIDERS: PCP Family Medicine; Referring Provider Student in an Organized Health Care Education/Training Program; Visit Provider Student in an Organized Health Care Education/Training Program
DX: N05.9 Unspecified nephritic syndrome with unspecified morphologic changes (principal); D70.9 Neutropenia, unspecified; D63.1 Anemia in chronic kidney disease; R80.9 Proteinuria, unspecified
CPT/HCPCS: 36415; 80048; 82310; 82570; 83970; 84156; 85014; 85018

== ENCOUNTER 2024-12-24 08:56 | Day surgery (SDC) | payer MEDICARE, OTHER, SELFPAY ==
[2024-12-19 12:22] VITALS: BMI 25.7
[2024-12-24] VITALS (10 sets, daily range): BP systolic 104–142; BP diastolic 52–78; PULSE 58–74; RESP 9–19; TEMP 36.3–36.5; O2SAT 94–98; BMI 25.7
--- NOTE | 2024-12-24 09:16 | PM.PREOP ---
Pre-operative Note COVID-19 COVID-19 status: Not tested Interval Note History & Physical reviewed/Exam performed by Physician: Yes Changes to H&P: No ASA Class (for procedural sedation): II
[2024-12-24] MEDS: LACTATED RINGERS 1,000 ML 42 ML IV ×2 (09:49→10:51)
[2024-12-24] MEDS: CIPROFLOXACIN 400 MG/200 ML PIGGYBACK 200 MG IV (10:16)
--- NOTE | 2024-12-24 10:23 | SUR.OPER ---
Supine on padded OR bed with pink pads, head on pillow with prone face pillow per anesthesia, arms padded and tucked at sides, torso strape applied, legs uncrossed, safety belt at thigh, tape over blanket over lower legs .
[2024-12-24] MEDS: BUPIVACAINE 0.5% (PF) 30 ML VIAL INJ (10:52)
--- NOTE | 2024-12-24 11:52 | PM.OP.1 ---
Operative Date/Time/Diagnoses Date of procedure: 12/24/24 Time of procedure: 11:52 Pre-op diagnosis: Left inguinal hernia Post-op diagnosis: same Procedure & Clinicians Procedure: Robotic left inguinal hernia repair with mesh Same procedure as scheduled: Yes Surgeon: Jimmy Mendoza Color Consultant: Jabier Chao Anesthesia Type: General Operative Notes Findings: Large left indirect defect and small femoral defect Applied: none Estimated Blood Loss (mL): 10 Procedure in detail: The patient was given preoperative antibiotics. The patient was brought to the operating room, placed on the table in the supine position with the arms tucked and general anesthesia was induced. The abdomen was prepped and draped in the usual fashion. A time-out was performed. A 1 cm transverse incision was created superior to the umbilicus and dissection was carried down to the fascia. The fascia was grasped with a Michell clamp to elevate the abdominal wall. The fascia was scored transversely with cautery. A Peon clamp was used to tolbert the peritoneum. The 12 mm robotic port was placed and the abdomen was insufflated to 15 mmHg. The camera was inserted, there was no evidence of any injury from the entry. There was a fairly large left indirect inguinal hernia. It was a segment of sigmoid colon that was attached to the peritoneum traveling into the defect consistent with a sliding hernia. There was no right inguinal hernia. 8 mm ports were placed under direct vision in the mid left and mid right abdomen. The patient was positioned in Trendelenburg. The robot was docked. We created left peritoneal flap. The peritoneal sac was dissected off the left cord structures and the Adryan's ligament was exposed and the pubis bone was exposed to the midline. There was also a very small femoral hernia containing fatty tissue. An extra-large mid weight left Bard mesh was brought in and placed over the defect with the medial edge overlapping the pubic symphysis. The mesh was secured to Adryan's ligament with a single 3-0 Vicryl stitch. We then closed the peritoneal flap with a running 3-0 barbed suture. We took one last look around the abdomen and saw no other abnormalities. The suture was removed and accounted for. The robot was undocked. The 8 mm ports were removed under direct vision. The abdomen was desufflated. The 12 mm port was removed. Additional local was injected into the fascia and the fascial incision was closed with 2 interrupted 0 Vicryl sutures. The skin incisions were closed with 4 Monocryl, Steri-Strips and Band-Aids. Jabier CUEVAS provided assistance with exposure, retraction and closure of incisions. Complications: none Post-operative Condition: stable Disposition: PACU
[2024-12-24] MEDS: ACETAMINOPHEN IV 1,000 MG/100 ML VIAL 400 MG IV (12:22)
== END 2024-12-24 13:50 | disposition home or self-care (01) ==
PROVIDERS: PCP Family Medicine; Referring Provider Surgery; Visit Provider Surgery
PROC: 0YQ64ZZ Repair Left Inguinal Region, Percutaneous Endoscopic Approach (ICD-10-PCS; CPT 49650; principal; 2024-12-24 10:45)
DX: K40.90 Unilateral inguinal hernia, without obstruction or gangrene, not specified as recurrent (principal); Z87.891 Personal history of nicotine dependence
CPT/HCPCS: 49650; S2900; C1781; J0131; J0330; J0744; J1171; J2250; J2704; J3010

== ENCOUNTER 2025-04-07 14:58 | Outpatient (CLI) | payer MEDICARE, OTHER, SELFPAY ==
[2025-04-07] VITALS (8 sets, daily range): BP systolic 146–172; BP diastolic 66–74; PULSE 54–61; RESP 12–20; TEMP 36.8; O2SAT 95–99
[2025-04-07] MEDS: MIDAZOLAM 2 MG/2 ML VIAL IV (15:54)
[2025-04-07] MEDS: BETAMETHASONE 30 MG/5 ML MDV 12 MG INJ (15:58)
[2025-04-07] MEDS: BETAMETHASONE 30 MG/5 ML MDV 6 MG INJ (15:59)
--- NOTE | 2025-04-07 16:57 | PM.PROC.IR.1 ---
Date/Time/Diagnoses Date of procedure: 04/07/25 Time of procedure: 16:57 Pre-procedure diagnosis: 1. FORAMINAL STENOSIS WITH LE SYMPTOMS Procedure Notes Procedure: 1. FLUOROSCOPICALLY GUIDED CONTRAST CONTROLLED TRANSFORAMINAL EPIDURAL STEROID INJECTION - BILATERAL L4/5 TFESI Indications: Miguelito is referred by Dr. Blue for treatment of Foraminal Stenosis with bilateral LE Symptoms Physician: Harshal Tubbs Total Fluoroscopy time (seconds): 12 Total sedation minutes: 16 Complications: none Procedure in detail & Post-procedure care: FINDINGS Foraminal Nerve Root Compression secondary to disc disease and facet hypertrophy DESCRIPTION OF PROCEDURE Following review of allergy and review of potential side effects and complications, including, but not necessarily limited to, infection, allergic reaction, local tissue breakdown, stroke, temporary or permanent nerve injury, paralysis, and possible , the patient indicated that the patient understood and agreed to proceed. An informed consent document was signed by the patient, witnessed by a nurse, and placed in the patient's chart. Additionally, other treatment options including medications, modalities, and physical therapy were reviewed with the patient. After review of previous anaesthesic history and IV conscious sedation the patient was deemed safe to proceed with today?s procedure with IV conscious sedation as ASA class II designation. Safety time-out was performed to confirm patient ID, procedure to be performed and site of procedure. IV sedation was accomplished with a combination of 2mg of Versed was administered by the RN after DO order, titrated to patient comfort during the course of the procedure while the patient remained responsive to all verbal commands In the prone position following sterile prep and drape of the lumbar region, the right L4/5 posterior neuroforamen was identified fluoroscopically. The skin was anesthetized via a 25-gauge 1.5-inch needle with 1% lidocaine solution. At this point, a 25-gauge 3.5-inch spinal needle was atraumatically introduced and advanced under fluoroscopic guidance through the posterior right L4/5 neuroforamen to approximately the anterior aspect of the canal. Depth was confirmed on lateral view. Following negative aspiration, injection of approximately 1.5cc of Isovue 200 under live fluoroscopy in the AP view confirmed excellent flow along the nerve root, into the epidural space without vascular or intrathecal uptake observed Radiological data, including multiple fluoroscopic views of the lumbosacral spine, reveal a spinal needle at the right L4/5 posterior neuroforamen. Subsequent views show flow of contrast material flowing superiorly and inferiorly along the nerve root confirming epidural flow. Subsequently, a test dose of 1.5cc of 1% lidocaine solution was administered and patient was observed for two minutes for signs or symptoms of complications, including abdominal pain, shortness of breath, bilateral upper or lower extremity weakness, nausea and vomiting, prior to steroid injection. At this point, a total of 2cc or 10mg of dexamethasone and 6mg betamethasone was injected without incident. Attention was then refocused to the left L4/5 level where the identical procedure was replicated. The procedure tolerated the procedure well without signs or symptoms of complications prior to transfer to the recovery area continued monitoring without incident. The patient was then transferred to the recovery area where they were observed for an appropriate time after the injection. The patient reported a VAS score of 7 prior to the procedure and a post-procedure VAS of 0. POST OP INSTRUCTIONS The patient was provided a Pain Log to continue to record their response to the target-specific procedure prior to follow-up visit with their referring physician. Additionally, specific post-injection care instructions and a contact number to our office were provided if concerns arise regarding possible complications associated with the procedure are suspected.
== END 2025-04-07 16:25 | disposition home or self-care (01) ==
PROVIDERS: PCP Family Medicine; Referring Provider Family Medicine; Visit Provider Physical Medicine & Rehabilitation
DX: M48.061 Spinal stenosis, lumbar region without neurogenic claudication (principal); M51.16 Intervertebral disc disorders with radiculopathy, lumbar region; M47.26 Other spondylosis with radiculopathy, lumbar region
CPT/HCPCS: 64483; 99152; J0702; J1100; J2250

== ENCOUNTER → 2025-05-01 07:05 | Outpatient (CLI) | payer MEDICARE, OTHER, SELFPAY ==
[2025-05-01 08:20] LABS: Add Manual Diff / Slide Review NO; Hematocrit 38.3 % (41-53); Hemoglobin 13.0 g/dL (13.5-17.5); Lymphocytes Absolute Auto 700 /uL (1100-4500); Mean Corpuscular HGB Conc 33.9 % (30-36); Mean Corpuscular Hemoglobin 30.2 PG (26-34); Mean Corpuscular Volume 89.1 fL (80-100); Platelet Count 181 X10^3/uL (150-400)
[2025-05-01 08:38] LABS: Alanine Aminotransferase 18 IU/L (<50); Albumin 4.3 g/dL (3.5-5.0); Albumin Globulin Ratio 1.8 (1.0-2.8); Alkaline Phosphatase 61 U/L (38-126); Blood Urea Nitrogen 31 mg/dL (9-20); Calcium 8.8 mg/dL (8.4-10.2); Carbon Dioxide 22 mmol/L (22-32); Chloride 106 mmol/L (98-107); Cholesterol 149 mg/dL (140-199); Estimated Glomerular Filt Rate 56 mL/min (>60); Globulin 2.4 g/dL (1.7-4.1); Glucose 100 mg/dL (70-99); HDL Cholesterol 64 mg/dL (40-60); HEMOLYSIS < 15 (0-50); Potassium 4.4 mmol/L (3.4-5.1); Sodium 137 mmol/L (137-145); Total Protein 6.7 g/dL (6.3-8.2); Triglycerides 84 mg/dL (35-150)
[2025-05-01 09:08] LABS: TSH w/ Reflex to FT4 2.34 uIU/mL (0.47-4.68)
[2025-05-01 09:09] LABS: Microalbumi Creatinin Ratio Ur 16.0 ug/mg CR (<30)
[2025-05-02 08:36] LABS: Rubeola Measles IgG > 300.0 AU/mL (Immune >16.4)
== END ==
PROVIDERS: PCP Family Medicine; Referring Provider Family Medicine; Visit Provider Family Medicine
DX: Z01.84 Encounter for antibody response examination (principal); R35.1 Nocturia; E78.2 Mixed hyperlipidemia; Z12.5 Encounter for screening for malignant neoplasm of prostate; N40.1 Benign prostatic hyperplasia with lower urinary tract symptoms; I10 Essential (primary) hypertension; M10.9 Gout, unspecified; N18.32 Chronic kidney disease, stage 3b
CPT/HCPCS: 36415; 80053; 80061; 82043; 82570; 84443; 85025; 86735; 86762; 86765; G0103